=== PATIENT | female | born 1985 | race African-American/Black ===

== ENCOUNTER 2018-03-20 12:49 | Emergency (ER) | payer SELFPAY ==
[2018-03-20] MEDS ORDERED: Sodium Chloride 0.9% 1,000 ML IV ONE (13:18)
[2018-03-20] MEDS ORDERED: Sodium Chloride 0.9% 2.5 ML Syringe FLUSH PRN (13:18)
[2018-03-20] MEDS ORDERED: Ondansetron 4 MG/2 ML SDV IVPUSH ONE (13:18)
[2018-03-20] MEDS ORDERED: Sodium Chloride 0.9% 10 ML Syringe FLUSH PRN (13:18)
--- NOTE | 2018-03-20 13:20 | EDM.PDOC ---
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 She states that she recently took a home test which was positive. His been vomiting the past 2 days. She states this morning she has vomited 3 times and she cannot keep anything down. LMP was approximately February 05. She denies any abdominal pain, vaginal discharge or bleeding, pelvic pain. Review of systems: As per history of present illness and below otherwise all systems reviewed and negative. Past medical history: As per history of present illness and as reviewed below otherwise noncontributory. Surgical history: As per history of present illness and as reviewed below otherwise noncontributory. Social history: No reported history of drug or alcohol abuse. Family history: As per history of present illness and as reviewed below otherwise noncontributory. Physical exam: General: Patient sitting comfortably in no acute distress HEENT: Atraumatic, normocephalic, pupils reactive, negative for conjunctival pallor or scleral icterus, mucous membranes moist, throat clear, neck supple, nontender, trachea midline. Lungs: Clear to auscultation, breath sounds equal bilaterally, chest nontender. Heart: S1S2, regular, negative for clicks, rubs, or JVD. Abdomen: Soft, nondistended, nontender. Negative for masses or hepatosplenomegaly. Negative for costovertebral tenderness. Pelvis: Stable nontender. Genitourinary: Deferred. Rectal: Deferred. Extremities: Atraumatic, negative for cords or calf pain. Neurovascular unremarkable. Neuro: Awake, alert, oriented. Cranial nerves II through XII unremarkable. Cerebellum unremarkable. Motor and sensory unremarkable throughout. Exam nonfocal. Notes: Diagnostics: Urine hCG Therapeutics: 1 L normal saline IV 4 mg Zofran IV Impression: Nausea and vomiting in Plan: 1. May take Vitamin B6 10mg 3 times a day and eat crackers with plenty of small sips of fluids as needed. May take zofran as needed for severe nausea/vomiting. 2. Follow up with OB 3. Return to ED as needed as discussed. Definitive disposition and diagnosis as appropriate pending reevaluation and review of above. - Related Data Allergies Allergy/AdvReac Type Severity Reaction Status Date / Time No Known Allergies Allergy Verified 03/20/18 13:19 Home Meds: Home Meds Ondansetron [Zofran ODT] 4 mg PO Q6H PRN #10 tab.dis 03/20/18 [Rx] ED ROS GENERAL - Review of Systems Review Of Systems: ROS reveals no pertinent complaints other than HPI. ED EXAM, GI/ABD - Physical Exam Exam: See Below (see dictation) Course - Vital Signs Last Recorded V/S: Last Vital Signs Temp 36.6 C 03/20/18 13:14 Pulse 82 03/20/18 13:14 Resp 18 03/20/18 13:14 BP 114/75 03/20/18 13:14 Pulse Ox 99 03/20/18 13:14 - Orders/Labs/Meds Orders: Active Orders 24 hr Category Date Time Status HCG QUALITATIVE,URINE [URCHEM] Stat Lab 03/20/18 13:25 Ordered Sodium Chloride 0.9% [Saline Flush] Med 03/20/18 13:18 Active 10 ml FLUSH ASDIRECTED PRN Sodium Chloride 0.9% [Saline Flush] Med 03/20/18 13:18 Active 2.5 ml FLUSH ASDIRECTED PRN Saline Lock Insert [OM.PC] Stat Oth 03/20/18 13:18 Ordered Medication Orders Sodium Chloride (Saline Flush) 10 ml FLUSH ASDIRECTED PRN PRN Reason: Keep Vein Open Sodium Chloride (Saline Flush) 2.5 ml FLUSH ASDIRECTED PRN PRN Reason: Keep Vein Open Labs: Laboratory Tests 03/20/18 Range/Units 13:25 Urine HCG, Qual POSITIVE (NEGATIVE) Meds: Medications Generic Name Dose Route Start Last Admin Trade Name Freq PRN Reason Stop Dose Admin Sodium Chloride 10 ml 03/20/18 13:18 Saline Flush FLUSH ASDIRECTED PRN Keep Vein Open Sodium Chloride 2.5 ml 03/20/18 13:18 Saline Flush FLUSH ASDIRECTED PRN Keep Vein Open Discontinued Medications Generic Name Dose Route Start Last Admin Trade Name Freq PRN Reason Stop Dose Admin Sodium Chloride 1,000 mls @ 999 mls/hr 03/20/18 13:18 03/20/18 13:47 Normal Saline IV 03/20/18 14:18 999 mls/hr STAT ONE Administration Ondansetron HCl 4 mg 03/20/18 13:18 03/20/18 13:47 Zofran IVPUSH 03/20/18 13:19 4 mg ONETIME ONE Administration Departure - Departure Time of Disposition: 14:21 Disposition: Home, Self-Care 01 Condition: Good Clinical Impression: Nausea and vomiting during - Discharge Information Prescriptions: Ondansetron [Zofran ODT] 4 mg PO Q6H PRN #10 tab.dis PRN Reason: Nausea/Vomiting Referrals: PCP,None [Primary Care Provider] - Forms: ED Department Discharge Additional Instructions: 1. May take Vitamin B6 10mg 3 times a day and eat crackers with plenty of small sips of fluids as needed. May take zofran as needed for severe nausea/vomiting. 2. Follow up with OB 3. Return to ED as needed as discussed. - My Orders Last 24 Hours: My Active Orders 03/20/18 13:18 Sodium Chloride 0.9% [Saline Flush] 10 ml FLUSH ASDIRECTED PRN Sodium Chloride 0.9% [Saline Flush] 2.5 ml FLUSH ASDIRECTED PRN Saline Lock Insert [OM.PC] Stat 03/20/18 13:25 HCG QUALITATIVE,URINE [URCHEM] Stat - Assessment/Plan Last 24 Hours: My Active Orders 03/20/18 13:18 Sodium Chloride 0.9% [Saline Flush] 10 ml FLUSH ASDIRECTED PRN Sodium Chloride 0.9% [Saline Flush] 2.5 ml FLUSH ASDIRECTED PRN Saline Lock Insert [OM.PC] Stat 03/20/18 13:25 HCG QUALITATIVE,URINE [URCHEM] Stat
== END 2018-03-20 14:42 | disposition home or self-care (01) ==
LOC: MW.ED 12:49
DX: O21.9 Vomiting of pregnancy, unspecified (principal)
CPT/HCPCS: 81025; 96361; 96374; 99283; J2405; J7040; 99282

== ENCOUNTER 2018-11-20 23:50 | Inpatient (IN) | payer OTHER ==
[2018-11-21] MEDS ORDERED: Misoprostol 200 MCG Tab PO PRN (00:14)
[2018-11-21] MEDS ORDERED: Methylergonovine 0.2 MG/1 ML Amp IM PRN (00:14)
[2018-11-21] MEDS ORDERED: Nalbuphine 10 MG/1 ML Vial IVPUSH PRN ×2 (00:14→18:35)
[2018-11-21] MEDS ORDERED: Water For Irrigation,Sterile 1,000 ML Container IRR PRN (00:14)
[2018-11-21] MEDS ORDERED: Lidocaine 1% 50 ML MDV INJECT PRN (00:14)
[2018-11-21] MEDS ORDERED: Sodium Chloride 0.9% 10 ML SDV IV PRN (00:14)
[2018-11-21] MEDS ORDERED: Ondansetron 4 MG/2 ML SDV IV PRN (00:14)
[2018-11-21] MEDS ORDERED: Tranexamic Acid 1,000 MG in Sodium Chloride 0.9% 100 ML IV PRN (00:14)
[2018-11-21] MEDS ORDERED: Butorphanol 1 MG/ML SDV IVPUSH PRN (00:14)
[2018-11-21] MEDS ORDERED: Sodium Chloride 0.9% 2.5 ML Syringe FLUSH PRN (00:14)
[2018-11-21] MEDS ORDERED: Carboprost Tromethamine 250 MCG/1 ML Amp IM PRN (00:14)
[2018-11-21] MEDS ORDERED: Sodium Chloride 0.9% 10 ML Syringe FLUSH PRN (00:14)
[2018-11-21] MEDS ORDERED: Oxytocin/0.9 % Sodium Chloride 30 UNIT/500 ML BAG IV SCH ×2 (00:15→10:15)
--- NOTE | 2018-11-21 08:18 | PCM.LDHP ---
L&D History of Present Illness - General Date of Service: 11/21/18 Admit Problem/Dx: Patient Status Order with Admit Dx/Problem 11/21/18 00:14 Patient Status [ADT] Routine Admission Diagnosis/Problem Admission Diagnosis/Problem 11/21/18 08:13 33yo EDC 11/10/2018 41 4/7wks, Labor, O neg, RI, GBS neg, AROM light meconium fluid. 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: Reports: Social & Family History - Family History Family Medical History: Noncontributory - Tobacco Use Smoking Status *Q: Never Smoker - Caffeine Use Caffeine Use: Reports: Coffee, Tea - Recreational Drug Use Recreational Drug Use: No H&P Review of Systems - Review of Systems: Review Of Systems: See Below General: Reports: No Symptoms HEENT: Reports: No Symptoms Pulmonary: Reports: No Symptoms Cardiovascular: Reports: No Symptoms Gastrointestinal: Reports: No Symptoms Genitourinary: Reports: No Symptoms Musculoskeletal: Reports: No Symptoms Skin: Reports: No Symptoms Psychiatric: Reports: No Symptoms Neurological: Reports: No Symptoms Hematologic/Lymphatic: Reports: No Symptoms Immunologic: Reports: No Symptoms L&D Exam - Exam Exam: See Below - Vital Signs Weight: 71.214 kg - OB Specific Contraction Intensity: Moderate Movement: Active Heart Tones: Present Heart Tones per Min: 150 Heart Rate (FHR) Variability: Moderate (6-25 bmp) Presentation: Vertex - Rodríguez Score Rodríguez Score Cervix Position: Anterior Rodríguez Score Consistency: Soft Rodríguez Score Effacement: >80% Rodríguez Score Dilation: > 5 cm Rodríguez Score Infant's Station: -2 Rodríguez Score Total: 11 - Exam General: Alert, Oriented, Cooperative HEENT: Hearing Intact Lungs: Normal Respiratory Effort GI/Abdominal Exam: Soft, Non-Tender Rectal Exam: Deferred Genitourinary: Normal external exam, Normal bimanual exam, Cervical dilitation, Cervical fluid (mec stained fluid) Back Exam: Normal Inspection, Full Range of Motion Extremities: Normal Inspection, Normal Range of Motion, Non-Tender, No Pedal Edema Skin: Warm, Dry, Intact Neurological: Cranial Nerves Intact, Strength Equal Bilateral, Normal Speech, Normal Tone, Sensation Intact Psychiatric: Alert, Normal Affect, Normal Mood - Patient Data Lab Results Last 24 hrs: Laboratory Results - last 24 hr 11/21/18 11/21/18 Range/Units 00:35 00:35 WBC 9.19 (4.0-11.0) K/uL RBC 5.78 (4.30-5.90) M/uL Hgb 12.8 (12.0-16.0) g/dL Hct 40.4 (36.0-46.0) % MCV 69.9 L (80.0-98.0) fL MCH 22.1 L (27.0-32.0) pg MCHC 31.7 (31.0-37.0) g/dL RDW Std Deviation 53.2 (28.0-62.0) fl RDW Coeff of Amy 21 H (11.0-15.0) % Plt Count 150 (150-400) K/uL Nucleated RBC % 0.0 /100WBC Nucleated RBCs # 0 K/uL Blood Type O NEGATIVE Antibody Screen NEGATIVE Result Diagrams: 11/21/18 00:35 - Problem List (1) Supervision of normal IUP (intrauterine ) in primigravida SNOMED Code(s): 12673724, 474332896, 147984459, 811898446 ICD Code: Z34.00 - ENCNTR FOR SUPRVSN OF NORMAL FIRST , UNSP TRIMESTER Status: Acute Priority: High Current Visit: Yes Qualifiers: Trimester: third trimester Qualified Code(s): Z34.03 - Encounter for supervision of normal first , third trimester (2) Meconium in amniotic fluid SNOMED Code(s): 689481216, 015384305 ICD Code: P96.83 - MECONIUM STAINING Status: Acute Priority: High Current Visit: Yes Problem List Initiated/Reviewed/Updated: Yes Orders Last 24hrs: Active Orders 24 hr Category Date Time Status Patient Status [ADT] Routine ADT 11/21/18 00:14 Active May Shower [RC] ASDIRECTED Care 11/21/18 00:14 Active Notify Provider [RC] PRN Care 11/21/18 00:14 Active Up ad Malia [RC] ASDIRECTED Care 11/21/18 00:14 Active Vital Signs [RC] PER UNIT ROUTINE Care 11/21/18 00:14 Active Clear Liquid Diet [DIET] Diet 11/21/18 Breakfast Active Butorphanol [Stadol] Med 11/21/18 00:14 Active 1 mg IVPUSH Q1H PRN Carboprost Tromethamine [Hemabate DS] Med 11/21/18 00:14 Active 250 mcg IM ASDIRECTED PRN Lactated Ringers [Ringers, Lactated] 1,000 ml Med 11/21/18 00:15 Active IV ASDIRECTED Lidocaine 1% [Xylocaine 1%] Med 11/21/18 00:14 Active 50 ml INJECT ONETIME PRN Methylergonovine [Methergine] Med 11/21/18 00:14 Active 0.2 mg IM ASDIRECTED PRN Nalbuphine [Nubain] Med 11/21/18 00:14 Active 10 mg IVPUSH Q1H PRN Ondansetron [Zofran] Med 11/21/18 00:14 Active 4 mg IV Q6H PRN Oxytocin/0.9 % Sodium Chloride [Oxytocin 30 Unit/500 ML Med 11/21/18 00:15 Active -NS] 30 unit in 500 ml IV TITRATE Sodium Chloride 0.9% [Normal Saline] Med 11/21/18 00:14 Active 10 ml IV ASDIRECTED PRN Sodium Chloride 0.9% [Saline Flush] Med 11/21/18 00:14 Active 10 ml FLUSH ASDIRECTED PRN Sodium Chloride 0.9% [Saline Flush] Med 11/21/18 00:14 Active 2.5 ml FLUSH ASDIRECTED PRN Tranexamic Acid [Cyklokapron] 1,000 mg Med 11/21/18 00:14 Active Sodium Chloride 0.9% [Normal Saline] 100 ml IV ONETIME Water For Irrigation,Sterile [Sterile Water for Med 11/21/18 00:14 Active Irrigation] 1,000 ml IRR ASDIRECTED PRN miSOPROStol [Cytotec] Med 11/21/18 00:14 Active 200 mcg PO ONETIME PRN Scalp Electrode [WOMSER] Per Unit Routine Oth 11/21/18 00:14 Ordered Peripheral IV Insertion Adult [OM.PC] Routine Oth 11/21/18 00:14 Ordered Resuscitation Status Routine Resus Stat 11/21/18 00:14 Ordered Medication Orders Butorphanol Tartrate (Stadol) 1 mg IVPUSH Q1H PRN PRN Reason: Pain Carboprost Tromethamine (Hemabate Ds) 250 mcg IM ASDIRECTED PRN PRN Reason: Post Hemorrhage Lactated Ringer's (Ringers, Lactated) 1,000 mls @ 150 mls/hr IV ASDIRECTED CLYDE Oxytocin/Sodium Chloride (Oxytocin 30 Unit/500 Ml-Ns) 30 unit in 500 mls @ 999 mls/hr IV TITRATE CLYDE Tranexamic Acid 1,000 mg/ (Sodium Chloride) 110 mls @ 660 mls/hr IV ONETIME PRN PRN Reason: Bleeding Lidocaine HCl (Xylocaine 1%) 50 ml INJECT ONETIME PRN PRN Reason: Laceration repair Methylergonovine Maleate (Methergine) 0.2 mg IM ASDIRECTED PRN PRN Reason: Post Hemorrhage Misoprostol (Cytotec) 200 mcg PO ONETIME PRN PRN Reason: Post Hemorrhage Nalbuphine HCl (Nubain) 10 mg IVPUSH Q1H PRN PRN Reason: Pain (severe 7-10) Ondansetron HCl (Zofran) 4 mg IV Q6H PRN PRN Reason: Nausea/Vomiting Sodium Chloride (Saline Flush) 10 ml FLUSH ASDIRECTED PRN PRN Reason: Keep Vein Open Sodium Chloride (Saline Flush) 2.5 ml FLUSH ASDIRECTED PRN PRN Reason: Keep Vein Open Sodium Chloride (Normal Saline) 10 ml IV ASDIRECTED PRN PRN Reason: IV Use Sterile Water (Sterile Water For Irrigation) 1,000 ml IRR ASDIRECTED PRN PRN Reason: delivery Assessment/Plan Comment:: Labor A: 33yo EDC 11/10/2018 41 4/7wks, Labor, O neg, RI, GBS neg, AROM light meconium fluid. P: Admit, desires no epidural at this time, anticipate , Dr Escobedo updated
[2018-11-21] MEDS ORDERED: Terbutaline 1 MG/ML SDV SUBCUT PRN (10:05)
[2018-11-21] MEDS: Lactated Ringers 1,000 ML IV SCH ×2 (10:40→16:18)
[2018-11-21] MEDS ORDERED: ceFAZolin 2 GM in Premix Bag 1 BAG IV ONE (15:47)
[2018-11-21] MEDS ORDERED: Citric Acid/Sodium Citrate Solution 30 ML Cup PO ONE (15:47)
[2018-11-21] MEDS ORDERED: Morphine PF 10 MG/10 ML SDV ONE (16:21)
--- NOTE | 2018-11-21 16:23 | PCM.PREANE ---
Preanesthetic Assessment - Anesthesia/Transfusion/Family Hx Anesthesia History: No Prior Anesthesia Family History of Anesthesia Reaction: No Transfusion History: No Prior Transfusion(s) - Review of Systems General: No Symptoms Pulmonary: No Symptoms Cardiovascular: No Symptoms Gastrointestinal: No Symptoms Neurological: Paresthesia Other: Reports: None - Physical Assessment Temperature: 98 C Vital Signs: bp 114/75, p 85 fhr 135 Height: 1.55 m Weight: 71.214 kg ASA Class: 2E Mental Status: Alert & Oriented x3 Airway Class: Mallampati = 2 Dentition: Reports: Normal Dentition Thyro-Mental Finger Breadths: 3 Mouth Opening Finger Breadths: 3 ROM/Head Extension: Full Lungs: Clear to Auscultation, Normal Respiratory Effort Cardiovascular: Regular Rate, Regular Rhythm - Lab Values: Laboratory Last Values WBC 9.19 K/uL (4.0-11.0) 11/21/18 00:35 RBC 5.78 M/uL (4.30-5.90) 11/21/18 00:35 Hgb 12.8 g/dL (12.0-16.0) 11/21/18 00:35 Hct 40.4 % (36.0-46.0) 11/21/18 00:35 MCV 69.9 fL (80.0-98.0) L 11/21/18 00:35 MCH 22.1 pg (27.0-32.0) L 11/21/18 00:35 MCHC 31.7 g/dL (31.0-37.0) 11/21/18 00:35 RDW Std Deviation 53.2 fl (28.0-62.0) 11/21/18 00:35 RDW Coeff of Amy 21 % (11.0-15.0) H 11/21/18 00:35 Plt Count 150 K/uL (150-400) 11/21/18 00:35 Nucleated RBC % 0.0 /100WBC 11/21/18 00:35 Nucleated RBCs # 0 K/uL 11/21/18 00:35 Blood Type O NEGATIVE 11/21/18 00:35 Antibody Screen NEGATIVE 11/21/18 00:35 - Allergies Allergies/Adverse Reactions: Allergies Allergy/AdvReac Type Severity Reaction Status Date / Time No Known Allergies Allergy Verified 11/21/18 02:31 - Acknowledgements Anesthesia Type Planned: Spinal (discussed conversion to general anesthesia if spinal is inadequate or surgery is prolonged. 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 mathews. refer to his note for diagnosis) Musculoskeletal History: Reports: None Neurological History: Reports: None Psychiatric History: Reports: None Endocrine/Metabolic History: Reports: None - SUBSTANCE USE Smoking Status *Q: Never Smoker Days Per Week of Alcohol Use: 0 Recreational Drug Use History: No - HOME MEDS Home Medications: Home Meds Ondansetron [Zofran ODT] 4 mg PO Q6H PRN #10 tab.dis 03/20/18 [Rx] PNV95/Ferrous Fumarate/FA [ Tablet] 1 tab PO DAILY 11/21/18 [History] - CURRENT (IN HOUSE) MEDS Current Meds: Current Medications Butorphanol Tartrate (Stadol) 1 mg IVPUSH Q1H PRN PRN Reason: Pain Carboprost Tromethamine (Hemabate Ds) 250 mcg IM ASDIRECTED PRN PRN Reason: Post Hemorrhage Lactated Ringer's (Ringers, Lactated) 1,000 mls @ 150 mls/hr IV ASDIRECTED CLYDE Last Admin: 11/21/18 10:40 Dose: 150 mls/hr Oxytocin/Sodium Chloride (Oxytocin 30 Unit/500 Ml-Ns) 30 unit in 500 mls @ 999 mls/hr IV TITRATE CLYDE Tranexamic Acid 1,000 mg/ (Sodium Chloride) 110 mls @ 660 mls/hr IV ONETIME PRN PRN Reason: Bleeding Oxytocin/Sodium Chloride (Oxytocin 30 Unit/500 Ml-Ns) 30 unit in 500 mls @ 2 mls/hr IV TITRATE CLYDE; Protocol Last Titration: 11/21/18 13:35 Dose: 10 munits/min, 10 mls/hr Lidocaine HCl (Xylocaine 1%) 50 ml INJECT ONETIME PRN PRN Reason: Laceration repair Methylergonovine Maleate (Methergine) 0.2 mg IM ASDIRECTED PRN PRN Reason: Post Hemorrhage Misoprostol (Cytotec) 200 mcg PO ONETIME PRN PRN Reason: Post Hemorrhage Nalbuphine HCl (Nubain) 10 mg IVPUSH Q1H PRN PRN Reason: Pain (severe 7-10) Ondansetron HCl (Zofran) 4 mg IV Q6H PRN PRN Reason: Nausea/Vomiting Sodium Chloride (Saline Flush) 10 ml FLUSH ASDIRECTED PRN PRN Reason: Keep Vein Open Sodium Chloride (Saline Flush) 2.5 ml FLUSH ASDIRECTED PRN PRN Reason: Keep Vein Open Sodium Chloride (Normal Saline) 10 ml IV ASDIRECTED PRN PRN Reason: IV Use Sterile Water (Sterile Water For Irrigation) 1,000 ml IRR ASDIRECTED PRN PRN Reason: delivery Terbutaline Sulfate (Brethine) 0.25 mg SUBCUT ASDIRECTED PRN PRN Reason: Tacysystole Discontinued Medications Citric Acid/Sodium Citrate (Bicitra Solution) 30 ml PO ONETIME ONE Stop: 11/21/18 15:48 Cefazolin Sodium/Dextrose 2 gm (/ Premix) 50 mls @ 100 mls/hr IV ONETIME ONE Stop: 11/21/18 16:16
[2018-11-21] MEDS ORDERED: Bisacodyl 10 MG Supp RECTAL PRN (17:42)
[2018-11-21] MEDS ORDERED: Ibuprofen 800 MG Tab PO PRN (17:42)
[2018-11-21] MEDS ORDERED: Ondansetron 4 MG/2 ML SDV IVPUSH PRN (17:42)
[2018-11-21] MEDS ORDERED: Lanolin 100% Cream 7 GM Tube TOP PRN (17:42)
[2018-11-21] MEDS ORDERED: diphenhydrAMINE 50 MG/ML SDV IVPUSH PRN (17:42)
[2018-11-21] MEDS ORDERED: Acetaminophen/oxyCODONE 325-5 MG Tab PO PRN ×3 (17:42→18:35)
[2018-11-21] MEDS ORDERED: Lactated Ringers 1,000 ML IV SCH (17:45)
--- NOTE | 2018-11-21 17:46 | PCM.OPNOTE ---
- General Post-Op/Procedure Note Date of Surgery/Procedure: 11/21/18 Operative Procedure(s): Primary C/section. Pre Op Diagnosis: [id number] faliear to progress Post-Op Diagnosis: Same Anesthesia Technique: Spinal Primary Surgeon: Jaylan Escobedo Ham Pumper: Nila Millard EBL in mLs: 650 Complications: None Condition: Good
[2018-11-21] MEDS ORDERED: Octyl 2-Cyanoacrylate 1 Tube ONE (17:47)
[2018-11-21] MEDS: Ketorolac 30 MG/ML SDV IVPUSH SCH (18:28)
[2018-11-21] MEDS ORDERED: Naloxone 0.4 MG/ML Syringe IVPUSH PRN (18:35)
--- NOTE | 2018-11-21 18:44 | PCM.POSTAN ---
POST ANESTHESIA ASSESSMENT - MENTAL STATUS Mental Status: Alert, Oriented - VITAL SIGNS Blood Pressure: 107/41 - RESPIRATORY Respiratory Status: Respiratory Rate WNL, Airway Patent, O2 Saturation Stable - CARDIOVASCULAR CV Status: Pulse Rate WNL, Blood Pressure Stable - GASTROINTESTINAL GI Status: No Symptoms - PAIN Pain Score: 0 (spinal still intact) - POST OP HYDRATION Hydration Status: Adequate & Stable
--- NOTE | 2018-11-21 19:18 | OR ---
SURGEON: Jaylan Escobedo MD DATE OF PROCEDURE: 11/21/2018 PREOPERATIVE DIAGNOSIS: Intrauterine , 41 weeks plus, failure to progress. POSTOPERATIVE DIAGNOSIS: Intrauterine , 41 weeks plus, failure to progress. OPERATION PERFORMED: Primary low-transverse section. FUR STYLIST: Nila Millard. ANESTHESIA: Spinal. ANESTHESIOLOGIST: Ms. Mai Blanco and Dr. Bai. ESTIMATED BLOOD LOSS: 650 mL. COMPLICATIONS: None. FINDING: Male fetus, cried immediately. score reported to be 8 and 9. Normal uterus, tubes and ovary. Senior Analyst Programmer has attended the to the delivery and thick meconium was noted upon entering the amniotic sac. INDICATION: This patient is admitted in active labor. She is 41 weeks plus. She is followed in our clinic primarily by our nurse boom conveyor operator. The patient at the time of admission, she was 5 cm with bulging bag of water. She have an artificial rupture of the membrane and it was noted that the patient had thick meconium. The patient is rather progress slowly and she is 1-6 cm without any further progress. She started on Pitocin augmentation. She had adequate contractions every 2 to 3 minutes. She did not have spinal or epidural during the labor and the patient in spite of adequate contraction did not progress beyond 7 cm complete vertex and -3. A possibility of failure to progress is entertained and decision was made to do a primary low-transverse section that was presented and explained to the patient and her and they both consented for that procedure. PROCEDURE IN DETAIL: The patient was brought to the OR, properly identified and after adequate level of spinal anesthesia with a Desai catheter in the bladder, the patient was prepped and draped in sterile fashion as usual. Time-out was taken and then after reaffirming and identifying the patient, low-transverse skin incision was done using the and the electrocautery. The Claudia's fascia and rectus fascia were opened in direction of the incision. The 2 recti muscles were and peritoneal cavity was entered. Bladder flap was raised in the usual manner pushing the bladder away from the lower uterine segment. Low transverse uterine incision was done and extended manually with the hand. Fetus was in a vertex position. It is noticed that the fetus was above the pelvis and it was delivered without any problem, cried immediately, handed to the sr. vendor management associate who was present at the time of the delivery. score and weight are not available at this time. The placenta delivered spontaneous, complete, and intact and then repair of the lower uterine segment done with 2-0 Vicryl continuous interlocking in 2 layers. Reperitonealization done with 3-0 Vicryl continuous and then the peritoneal cavity evacuated completely from all blood and blood clot and closed with 3-0 Vicryl continuous and the rectus fascia was closed with #1 PDS double strand continuous, the Claudia's fascia with 3-0 Vicryl continuous and the skin closed with skin clips, 3-0 Vicryl in a subcuticular fashion with Dermabond. Instrument and sponge count was correct. The patient tolerated the procedure well, went to recovery in stable general condition. MARISOL CASTANON /[id number]
[2018-11-22] MEDS: Ketorolac 30 MG/ML SDV IVPUSH SCH ×4 (00:40→18:51)
--- NOTE | 2018-11-22 05:38 | PCM48HPAN ---
Post Anesthesia Note - EVALUATION WITHIN 48HRS OF ANESTHETIC Vital Signs in Normal Range: Yes Patient Participated in Evaluation: Yes Respiratory Function Stable: Yes Airway Patent: Yes Cardiovascular Function Stable: Yes Hydration Status Stable: Yes Pain Control Satisfactory: Yes Nausea and Vomiting Control Satisfactory: Yes Mental Status Recovered: Yes Resp Rate: 17 Blood Pressure: 107/41
[2018-11-22] MEDS: Docusate Sodium 100 MG Cap PO SCH ×3 (07:38→20:55)
--- NOTE | 2018-11-22 09:55 | PCM.PNPP ---
- General Info Date of Service: 11/22/18 Functional Status: Reports: Pain Controlled - Review of Systems General: Reports: No Symptoms HEENT: Reports: No Symptoms Pulmonary: Reports: No Symptoms Cardiovascular: Reports: No Symptoms Gastrointestinal: Reports: No Symptoms Genitourinary: Reports: No Symptoms Musculoskeletal: Reports: No Symptoms Skin: Reports: No Symptoms Neurological: Reports: No Symptoms Psychiatric: Reports: No Symptoms - General Info Date of Service: 11/22/18 - Patient Data Vital Signs - Most Recent: Last Vital Signs Temp 36.6 C 11/22/18 07:10 Pulse 91 11/22/18 09:00 Resp 18 11/22/18 09:00 BP 106/72 11/22/18 07:10 Pulse Ox 97 11/22/18 09:00 Weight - Most Recent: 71.214 kg I&O - Last 24 Hours: Intake & Output 11/21/18 11/22/18 11/22/18 22:59 06:59 14:59 Intake Total 1500 700 Output Total 500 1300 Balance 1000 -600 Lab Results - Last 24 Hours: Laboratory Results - last 24 hr 11/21/18 11/21/18 11/21/18 Range/Units 00:35 20:45 20:45 Hgb (12.0-16.0) g/dL Hct (36.0-46.0) % Blood Type O NEGATIVE Antibody Screen NEGATIVE Screen Cancelled RhIG Candidate? Cancelled Rhogam Indicated YES, BABY RH POS H KB Screen Cancelled SEE NOTE KB Cells Counted Cancelled 2 KB Red Cells Counted Cancelled 2026 KB % Cells Cancelled 0.10 Doses of RhIg Required Cancelled 1 11/22/18 Range/Units 05:25 Hgb 10.1 L (12.0-16.0) g/dL Hct 32.6 L (36.0-46.0) % Blood Type Antibody Screen Screen RhIG Candidate? Rhogam Indicated KB Screen KB Cells Counted KB Red Cells Counted KB % Cells Doses of RhIg Required Med Orders - Current: Current Medications Bisacodyl (Dulcolax) 10 mg RECTAL ONETIME PRN PRN Reason: Constipation Butorphanol Tartrate (Stadol) 1 mg IVPUSH Q1H PRN PRN Reason: Pain Carboprost Tromethamine (Hemabate Ds) 250 mcg IM ASDIRECTED PRN PRN Reason: Post Hemorrhage Diphenhydramine HCl (Benadryl) 25 mg IVPUSH Q6H PRN PRN Reason: Itching or Nausea Docusate Sodium (Colace) 100 mg PO BID [facility] Last Admin: 11/22/18 09:13 Dose: 100 mg Emollient Ointment (Lansinoh Hpa) 0 gm TOP ASDIRECTED PRN PRN Reason: Sore Nipples Lactated Ringer's (Ringers, Lactated) 1,000 mls @ 150 mls/hr IV ASDIRECTED [facility] Last Admin: 11/21/18 16:18 Dose: 150 mls/hr Oxytocin/Sodium Chloride (Oxytocin 30 Unit/500 Ml-Ns) 30 unit in 500 mls @ 999 mls/hr IV TITRATE [facility] Tranexamic Acid 1,000 mg/ (Sodium Chloride) 110 mls @ 660 mls/hr IV ONETIME PRN PRN Reason: Bleeding Oxytocin/Sodium Chloride (Oxytocin 30 Unit/500 Ml-Ns) 30 unit in 500 mls @ 2 mls/hr IV TITRATE [facility]; Protocol Last Titration: 11/21/18 13:35 Dose: 10 munits/min, 10 mls/hr Lactated Ringer's (Ringers, Lactated) 1,000 mls @ 125 mls/hr IV ASDIRECTED [facility] Last Admin: 11/21/18 22:18 Dose: 125 mls/hr Ibuprofen (Motrin) 800 mg PO Q8H PRN PRN Reason: mild pain or fever Ketorolac Tromethamine (Toradol) 30 mg IVPUSH Q6H [facility] Stop: 11/22/18 17:46 Last Admin: 11/22/18 06:35 Dose: 30 mg Lidocaine HCl (Xylocaine 1%) 50 ml INJECT ONETIME PRN PRN Reason: Laceration repair Methylergonovine Maleate (Methergine) 0.2 mg IM ASDIRECTED PRN PRN Reason: Post Hemorrhage Misoprostol (Cytotec) 200 mcg PO ONETIME PRN PRN Reason: Post Hemorrhage Nalbuphine HCl (Nubain) 10 mg IVPUSH Q1H PRN PRN Reason: Pain (severe 7-10) Nalbuphine HCl (Nubain) 5 mg IVPUSH Q3H PRN PRN Reason: Pruritis Stop: 11/22/18 18:36 Last Admin: 11/22/18 00:25 Dose: 5 mg Naloxone HCl (Narcan) 0.1 mg IVPUSH ONETIME PRN PRN Reason: RR<6 WITH STIMULATION Stop: 11/22/18 18:36 Ondansetron HCl (Zofran) 4 mg IV Q6H PRN PRN Reason: Nausea/Vomiting Ondansetron HCl (Zofran) 4 mg IVPUSH Q4H PRN PRN Reason: Nausea/Vomiting Oxycodone/Acetaminophen (Percocet 325-5 Mg) 1 tab PO Q4H PRN PRN Reason: Pain (moderate 4-6) Oxycodone/Acetaminophen (Percocet 325-5 Mg) 2 tab PO Q4H PRN PRN Reason: Pain (moderate 4-6) Oxycodone/Acetaminophen (Percocet 325-5 Mg) 1 tab PO ONETIME PRN PRN Reason: Breakthrough Pain Stop: 11/22/18 17:00 Sodium Chloride (Saline Flush) 10 ml FLUSH ASDIRECTED PRN PRN Reason: Keep Vein Open Sodium Chloride (Saline Flush) 2.5 ml FLUSH ASDIRECTED PRN PRN Reason: Keep Vein Open Sodium Chloride (Normal Saline) 10 ml IV ASDIRECTED PRN PRN Reason: IV Use Sterile Water (Sterile Water For Irrigation) 1,000 ml IRR ASDIRECTED PRN PRN Reason: delivery Terbutaline Sulfate (Brethine) 0.25 mg SUBCUT ASDIRECTED PRN PRN Reason: Tacysystole Discontinued Medications Citric Acid/Sodium Citrate (Bicitra Solution) 30 ml PO ONETIME ONE Stop: 11/21/18 15:48 Last Admin: 11/21/18 16:30 Dose: 30 ml Cefazolin Sodium/Dextrose 2 gm (/ Premix) 50 mls @ 100 mls/hr IV ONETIME ONE Stop: 11/21/18 16:16 Last Admin: 11/21/18 16:15 Dose: 100 mls/hr Morphine Sulfate (Duramorph Pf) Confirm Administered Dose 10 mg .ROUTE .STK-MED ONE Stop: 11/21/18 16:22 Octyl Cyanoacrylate (Dermabond Advance) Confirm Administered Dose 1 applic .ROUTE .STK-MED ONE Stop: 11/21/18 17:48 Last Admin: 11/22/18 07:38 Dose: Not Given - Infant Interaction Infant Disposition, : [place] in Room with Family Infant Interaction: Not Interacting Infant Feeding: Attempted ; Nursed Fair/Poor Support Person: - Recovery Exam Fundal Tone: Firm Fundal Level: At Umbilicus Fundal Placement: Right Lochia Amount: Scant Lochia Color: Rubra/Red Perineum Description: Intact, Minimal Bruising/Swelling Episiotomy/Laceration: None Bladder Status: Indwelling Catheter in Place Urinary Elimination: Indwelling Catheter - Exam General: Alert, Oriented HEENT: Pupils Equal Neck: Supple Lungs: Clear to Auscultation, Normal Respiratory Effort Cardiovascular: Regular Rate, Regular Rhythm GI/Abdominal Exam: Normal Bowel Sounds, Soft, Non-Tender, No Organomegaly, No Distention, No Abnormal Bruit, No Mass, Pelvis Stable Extremities: Normal Inspection, Normal Range of Motion, Non-Tender, No Pedal Edema, Normal Capillary Refill Skin: Warm, Dry, Intact Wound/Incisions: Healing Well Neurological: No New Focal Deficit Psy/Mental Status: Alert, Normal Affect, Normal Mood - Problem List Review Problem List Initiated/Reviewed/Updated: Yes - My Orders Last 24 Hours: My Active Orders 11/21/18 15:47 Schedule Procedure [COMM] Per Unit Routine 11/21/18 16:30 Notify Provider Vital Signs [RC] PRN 11/21/18 17:42 Acetaminophen/oxyCODONE [Percocet 325-5 MG] 1 tab PO Q4H PRN Acetaminophen/oxyCODONE [Percocet 325-5 MG] 2 tab PO Q4H PRN Bisacodyl [Dulcolax] 10 mg RECTAL ONETIME PRN Ibuprofen [Motrin] 800 mg PO Q8H PRN Lanolin [Lansinoh HPA] See Dose Instructions TOP ASDIRECTED PRN Ondansetron [Zofran] 4 mg IVPUSH Q4H PRN diphenhydrAMINE [Benadryl] 25 mg IVPUSH Q6H PRN 11/21/18 17:43 Patient Status [ADT] Routine Ambulate [RC] PER UNIT ROUTINE Antiembolic Devices [RC] PER UNIT ROUTINE Communication Order [RC] PER UNIT ROUTINE Communication Order [RC] PER UNIT ROUTINE Communication Order [RC] Per Unit Routine May Shower [RC] ASDIRECTED RT Incentive Spirometry [RC] Q2HWA Vital Signs [RC] PER UNIT ROUTINE Assess Lochia [WOMSER] Per Unit Routine Assess Uterine Involution [WOMSER] Per Unit Routine Breast Pump [WOMSER] Per Unit Routine Peripheral IV Discontinue [OM.PC] Routine Sequential Compression Device [OM.PC] Per Unit Routine 11/21/18 17:45 Ketorolac [Toradol] 30 mg IVPUSH Q6H Lactated Ringers [Ringers, Lactated] 1,000 ml IV ASDIRECTED 11/21/18 20:45 RH IMMUNE GLOBULIN [BBK] Routine RHOGAM, [RHIG WORKUP, ] [BBK] Routine 11/21/18 21:00 Docusate Sodium [Colace] 100 mg PO BID 11/22/18 Breakfast Regular Diet [DIET] - Assessment Assessment:: Status post section postoperative day #1 the incision is clean and dry the patient is ambulatory minimum vaginal bleeding she is on regular diet to have pain is under control voiding without any problem. Planning discharge in a.m. - Plan Plan:: Labor A: 33yo EDC 11/10/2018 41 4/7wks, Labor, O neg, RI, GBS neg, AROM light meconium fluid. P: Admit, desires no epidural at this time, anticipate , Dr Escobedo updated
--- NOTE | 2018-11-23 08:42 | PCM.SURGPN ---
- General Info Date of Service: 11/23/18 POD#: 2 Functional Status: Reports: Pain Controlled - Review of Systems General: Reports: No Symptoms HEENT: Reports: No Symptoms Pulmonary: Reports: No Symptoms Cardiovascular: Reports: No Symptoms Gastrointestinal: Reports: No Symptoms Genitourinary: Reports: No Symptoms Musculoskeletal: Reports: No Symptoms Skin: Reports: No Symptoms Neurological: Reports: No Symptoms Psychiatric: Reports: No Symptoms - Patient Data Vitals - Most Recent: Last Vital Signs Temp 37.2 C 11/23/18 07:35 Pulse 74 11/23/18 07:35 Resp 16 11/23/18 07:35 BP 110/70 11/23/18 07:35 Pulse Ox 98 11/23/18 07:35 Weight - Most Recent: 71.214 kg I&O - Last 24 Hours: Intake & Output 11/22/18 11/23/18 11/23/18 22:59 06:59 14:59 Intake Total 2 Output Total 550 Balance -548 Lab Results Last 24 Hrs: Laboratory Results - last 24 hr 11/21/18 Range/Units 20:45 Screen Cancelled RhIG Candidate? Cancelled Rhogam Indicated YES, BABY RH POS H Med Orders - Current: Current Medications Bisacodyl (Dulcolax) 10 mg RECTAL ONETIME PRN PRN Reason: Constipation Butorphanol Tartrate (Stadol) 1 mg IVPUSH Q1H PRN PRN Reason: Pain Carboprost Tromethamine (Hemabate Ds) 250 mcg IM ASDIRECTED PRN PRN Reason: Post Hemorrhage Diphenhydramine HCl (Benadryl) 25 mg IVPUSH Q6H PRN PRN Reason: Itching or Nausea Docusate Sodium (Colace) 100 mg PO BID [facility] Last Admin: 11/22/18 20:55 Dose: 100 mg Emollient Ointment (Lansinoh Hpa) 0 gm TOP ASDIRECTED PRN PRN Reason: Sore Nipples Lactated Ringer's (Ringers, Lactated) 1,000 mls @ 150 mls/hr IV ASDIRECTED [facility] Last Admin: 11/21/18 16:18 Dose: 150 mls/hr Oxytocin/Sodium Chloride (Oxytocin 30 Unit/500 Ml-Ns) 30 unit in 500 mls @ 999 mls/hr IV TITRATE [facility] Tranexamic Acid 1,000 mg/ (Sodium Chloride) 110 mls @ 660 mls/hr IV ONETIME PRN PRN Reason: Bleeding Oxytocin/Sodium Chloride (Oxytocin 30 Unit/500 Ml-Ns) 30 unit in 500 mls @ 2 mls/hr IV TITRATE [facility]; Protocol Last Titration: 11/21/18 13:35 Dose: 10 munits/min, 10 mls/hr Lactated Ringer's (Ringers, Lactated) 1,000 mls @ 125 mls/hr IV ASDIRECTED [facility] Last Admin: 11/21/18 22:18 Dose: 125 mls/hr Ibuprofen (Motrin) 800 mg PO Q8H PRN PRN Reason: mild pain or fever Lidocaine HCl (Xylocaine 1%) 50 ml INJECT ONETIME PRN PRN Reason: Laceration repair Methylergonovine Maleate (Methergine) 0.2 mg IM ASDIRECTED PRN PRN Reason: Post Hemorrhage Misoprostol (Cytotec) 200 mcg PO ONETIME PRN PRN Reason: Post Hemorrhage Nalbuphine HCl (Nubain) 10 mg IVPUSH Q1H PRN PRN Reason: Pain (severe 7-10) Ondansetron HCl (Zofran) 4 mg IV Q6H PRN PRN Reason: Nausea/Vomiting Ondansetron HCl (Zofran) 4 mg IVPUSH Q4H PRN PRN Reason: Nausea/Vomiting Oxycodone/Acetaminophen (Percocet 325-5 Mg) 1 tab PO Q4H PRN PRN Reason: Pain (moderate 4-6) Oxycodone/Acetaminophen (Percocet 325-5 Mg) 2 tab PO Q4H PRN PRN Reason: Pain (moderate 4-6) Last Admin: 11/22/18 20:55 Dose: 2 tab Sodium Chloride (Saline Flush) 10 ml FLUSH ASDIRECTED PRN PRN Reason: Keep Vein Open Sodium Chloride (Saline Flush) 2.5 ml FLUSH ASDIRECTED PRN PRN Reason: Keep Vein Open Sodium Chloride (Normal Saline) 10 ml IV ASDIRECTED PRN PRN Reason: IV Use Sterile Water (Sterile Water For Irrigation) 1,000 ml IRR ASDIRECTED PRN PRN Reason: delivery Terbutaline Sulfate (Brethine) 0.25 mg SUBCUT ASDIRECTED PRN PRN Reason: Tacysystole Discontinued Medications Citric Acid/Sodium Citrate (Bicitra Solution) 30 ml PO ONETIME ONE Stop: 11/21/18 15:48 Last Admin: 11/21/18 16:30 Dose: 30 ml Cefazolin Sodium/Dextrose 2 gm (/ Premix) 50 mls @ 100 mls/hr IV ONETIME ONE Stop: 11/21/18 16:16 Last Admin: 11/21/18 16:15 Dose: 100 mls/hr Ketorolac Tromethamine (Toradol) 30 mg IVPUSH Q6H [facility] Stop: 11/22/18 17:46 Last Admin: 11/22/18 18:51 Dose: 30 mg Morphine Sulfate (Duramorph Pf) Confirm Administered Dose 10 mg .ROUTE .STK-MED ONE Stop: 11/21/18 16:22 Nalbuphine HCl (Nubain) 5 mg IVPUSH Q3H PRN PRN Reason: Pruritis Stop: 11/22/18 18:36 Last Admin: 11/22/18 00:25 Dose: 5 mg Naloxone HCl (Narcan) 0.1 mg IVPUSH ONETIME PRN PRN Reason: RR<6 WITH STIMULATION Stop: 11/22/18 18:36 Octyl Cyanoacrylate (Dermabond Advance) Confirm Administered Dose 1 applic .ROUTE .STK-MED ONE Stop: 11/21/18 17:48 Last Admin: 11/22/18 07:38 Dose: Not Given Oxycodone/Acetaminophen (Percocet 325-5 Mg) 1 tab PO ONETIME PRN PRN Reason: Breakthrough Pain Stop: 11/22/18 17:00 - Exam Wound/Incisions: Healing Well General: Alert, Oriented HEENT: Pupils Equal Neck: Supple Lungs: Clear to Auscultation, Normal Respiratory Effort Cardiovascular: Regular Rate, Regular Rhythm GI/Abdominal Exam: Normal Bowel Sounds, Soft, Non-Tender, No Organomegaly, No Distention, No Abnormal Bruit, No Mass, Pelvis Stable Extremities: Normal Inspection, Normal Range of Motion, Non-Tender, No Pedal Edema, Normal Capillary Refill Skin: Warm, Dry, Intact Neurological: No New Focal Deficit Psy/Mental Status: Alert, Normal Affect, Normal Mood - Problem List Review Problem List Initiated/Reviewed/Updated: Yes - My Orders Last 24 Hours: Active Orders 24 hr Category Date Time Status AN Neuroaxis Duramorph Precaution Reflex [OM.PC] PER Oth 11/22/18 18:45 Ordered UNIT ROUTINE Medication Orders Bisacodyl (Dulcolax) 10 mg RECTAL ONETIME PRN PRN Reason: Constipation Butorphanol Tartrate (Stadol) 1 mg IVPUSH Q1H PRN PRN Reason: Pain Carboprost Tromethamine (Hemabate Ds) 250 mcg IM ASDIRECTED PRN PRN Reason: Post Hemorrhage Diphenhydramine HCl (Benadryl) 25 mg IVPUSH Q6H PRN PRN Reason: Itching or Nausea Docusate Sodium (Colace) 100 mg PO BID [facility] Last Admin: 11/22/18 20:55 Dose: 100 mg Admin: 11/22/18 09:13 Dose: 100 mg Admin: 11/22/18 07:38 Dose: Emollient Ointment (Lansinoh Hpa) 0 gm TOP ASDIRECTED PRN PRN Reason: Sore Nipples Lactated Ringer's (Ringers, Lactated) 1,000 mls @ 150 mls/hr IV ASDIRECTED [facility] Last Admin: 11/21/18 16:18 Dose: 150 mls/hr Infusion: 11/21/18 16:18 Dose: 150 mls/hr Admin: 11/21/18 10:40 Dose: 150 mls/hr Oxytocin/Sodium Chloride (Oxytocin 30 Unit/500 Ml-Ns) 30 unit in 500 mls @ 999 mls/hr IV TITRATE [facility] Tranexamic Acid 1,000 mg/ (Sodium Chloride) 110 mls @ 660 mls/hr IV ONETIME PRN PRN Reason: Bleeding Oxytocin/Sodium Chloride (Oxytocin 30 Unit/500 Ml-Ns) 30 unit in 500 mls @ 2 mls/hr IV TITRATE [facility]; Protocol Last Titration: 11/21/18 13:35 Dose: 10 munits/min, 10 mls/hr Titration: 11/21/18 13:10 Dose: 9 munits/min, 9 mls/hr Titration: 11/21/18 12:45 Dose: 7 munits/min, 7 mls/hr Titration: 11/21/18 12:02 Dose: 5 munits/min, 5 mls/hr Titration: 11/21/18 11:05 Dose: 4 munits/min, 4 mls/hr Admin: 11/21/18 10:42 Dose: 2 munits/min, 2 mls/hr Lactated Ringer's (Ringers, Lactated) 1,000 mls @ 125 mls/hr IV ASDIRECTED [facility] Last Admin: 11/21/18 22:18 Dose: 125 mls/hr Ibuprofen (Motrin) 800 mg PO Q8H PRN PRN Reason: mild pain or fever Lidocaine HCl (Xylocaine 1%) 50 ml INJECT ONETIME PRN PRN Reason: Laceration repair Methylergonovine Maleate (Methergine) 0.2 mg IM ASDIRECTED PRN PRN Reason: Post Hemorrhage Misoprostol (Cytotec) 200 mcg PO ONETIME PRN PRN Reason: Post Hemorrhage Nalbuphine HCl (Nubain) 10 mg IVPUSH Q1H PRN PRN Reason: Pain (severe 7-10) Ondansetron HCl (Zofran) 4 mg IV Q6H PRN PRN Reason: Nausea/Vomiting Ondansetron HCl (Zofran) 4 mg IVPUSH Q4H PRN PRN Reason: Nausea/Vomiting Oxycodone/Acetaminophen (Percocet 325-5 Mg) 1 tab PO Q4H PRN PRN Reason: Pain (moderate 4-6) Oxycodone/Acetaminophen (Percocet 325-5 Mg) 2 tab PO Q4H PRN PRN Reason: Pain (moderate 4-6) Last Admin: 11/22/18 20:55 Dose: 2 tab Sodium Chloride (Saline Flush) 10 ml FLUSH ASDIRECTED PRN PRN Reason: Keep Vein Open Sodium Chloride (Saline Flush) 2.5 ml FLUSH ASDIRECTED PRN PRN Reason: Keep Vein Open Sodium Chloride (Normal Saline) 10 ml IV ASDIRECTED PRN PRN Reason: IV Use Sterile Water (Sterile Water For Irrigation) 1,000 ml IRR ASDIRECTED PRN PRN Reason: delivery Terbutaline Sulfate (Brethine) 0.25 mg SUBCUT ASDIRECTED PRN PRN Reason: Tacysystole - Assessment Assessment (Free Text/Narrative):: Status post section postoperative day #2 the incision is clean and dry the patient is ambulatory on regular diet and voiding without any problem she had a bowel movement. - Plan Plan (Free Text/Narrative):: Sending the patient home with the poor section instructions she is to follow Office in one week
[2018-11-23] MEDS: Docusate Sodium 100 MG Cap PO SCH (08:54)
--- NOTE | 2018-11-23 13:31 | PCM48HPAN ---
Post Anesthesia Note - EVALUATION WITHIN 48HRS OF ANESTHETIC Vital Signs in Normal Range: Yes Patient Participated in Evaluation: Yes Respiratory Function Stable: Yes Airway Patent: Yes Cardiovascular Function Stable: Yes Hydration Status Stable: Yes Pain Control Satisfactory: Yes Nausea and Vomiting Control Satisfactory: Yes Mental Status Recovered: Yes Resp Rate: 16 Temperature: 98 C Blood Pressure: 107/41
== END 2018-11-23 19:30 | disposition home or self-care (01) | DRG 788 ==
LOC: MW.OBCHECK 23:50 → MW.OB 11-21 00:06 → MW.OBCHECK 11-21 00:14 → MW.OB 11-21 00:14 → OBSVTOIN 11-21 17:24 → MW.OB 11-21 22:55
PROVIDERS: ADMIT Obstetrics & Gynecology; ATTEND Obstetrics & Gynecology
PROC: 10D00Z1 Extraction of Products of Conception, Low, Open Approach (ICD-10-PCS; principal; 2018-11-21)
PROC: 10907ZC Drainage of Amniotic Fluid, Therapeutic from Products of Conception, Via Natural or Artificial Opening (ICD-10-PCS; 2018-11-21)
DX: O62.0 Primary inadequate contractions (principal); O77.0 Labor and delivery complicated by meconium in amniotic fluid; Z3A.41 41 weeks gestation of pregnancy; Z37.0 Single live birth
CPT/HCPCS: 36415; 59025; 85014; 85018; 85027; 86850; 86900; 86901; A9270-GY; J0690; J1885; J2270; J2300; J2590; J2792; J7120

== ENCOUNTER 2020-02-11 06:12 | Emergency (ER) | payer OTHER, SELFPAY ==
--- NOTE | 2020-02-11 07:21 | CR ---
HISTORY: Syncope. TECHNIQUE: One view of the chest. COMPARISON: No prior. FINDINGS: Cardiac size and pulmonary vasculature are within normal limits. There is no acute lung infiltrate or pulmonary edema. No pneumothorax or pleural effusion. No acute bony abnormality. IMPRESSION: No acute disease. Dictated by Lamont Miguel MD @ 02/11/2020 7:19:59 AM Dictated by: Lamont Miguel MD @ 02/11/2020 07:20:02 (Electronically Signed)
[2020-02-11 07:25] LABS: BLOOD UREA NITROGEN,BUN 16 mg/dL (7.0-18.0); CARBON DIOXIDE,CO2 22.3 mmol/L (21.0-32.0); CHLORIDE,CL 103 mmol/L (98-107); GLUCOSE RANDOM 86 mg/dL (74-106); POTASSIUM,K 3.7 mmol/L (3.5-5.1); SODIUM,NA 137 mmol/L (136-145)
--- NOTE | 2020-02-11 07:36 | EDM.PDOC ---
ED HPI GENERAL MEDICAL PROBLEM - General Chief Complaint: Syncope Stated Complaint: FAINTED Time Seen by Provider: 02/11/20 06:19 - History of Present Illness INITIAL COMMENTS - FREE TEXT/NARRATIVE: History of present illness: [] Patient presents to the ED via EMS after having a syncopal episode this morning she had gotten up to use the restroom and had been having some heartburn and she wanted to take some Tums when she had a syncopal episode and apparently was passed out for approximately 1 minute. No injuries her was at her side when it happened and helped her she denies any pain at this time she has had a recent positive test at home she states that she had a previous syncopal episode in the past when she was a child and was found to be anemic. Not take anything for anemia and is not on a vitamin at this time. She is currently breast-feeding a [id number]. She denies any other medical problems she denies any chest pain shortness of breath headache there is been no GI bleeding no black tarry stools no excessive menses. She denies any abdominal or pelvic pain she is not been having bleeding with this . Review of systems: As per history of present illness and below otherwise all systems reviewed and negative. Past medical history: As per history of present illness and as reviewed below otherwise noncontributory. Surgical history: As per history of present illness and as reviewed below otherwise noncontributory. Social history: No reported history of drug or alcohol abuse. Family history: As per history of present illness and as reviewed below otherwise noncontributory. Physical exam: HEENT: Atraumatic, normocephalic, pupils reactive, negative for conjunctival pallor or scleral icterus, mucous membranes moist, throat clear, neck supple, nontender, trachea midline. Lungs: Clear to auscultation, breath sounds equal bilaterally, chest nontender. Heart: S1S2, regular, negative for clicks, rubs, or JVD. Abdomen: Soft, nondistended, nontender. Negative for masses or hepatosplenomegaly. Negative for costovertebral tenderness. Pelvis: Stable nontender. Genitourinary: Deferred. Rectal: Normal rectal exam brown stool Hemoccult negative Extremities: Atraumatic, negative for cords or calf pain. Neurovascular unremarkable. Neuro: Awake, alert, oriented. Cranial nerves II through XII unremarkable. Cerebellum unremarkable. Motor and sensory unremarkable throughout. Exam nonfocal. Diagnostics: [] Therapeutics: [] Impression: Syncope [] Plan: Patient will have some fluids. Lab work will be sent and she will be reassessed. [] Definitive disposition and diagnosis as appropriate pending reevaluation and review of above. 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: Musculoskeletal History: Reports: None Neurological History: Reports: None Psychiatric History: Reports: None Endocrine/Metabolic History: Reports: None Social & Family History - Family History Family Medical History: Noncontributory - Tobacco Use Smoking Status *Q: Never Smoker - Caffeine Use Caffeine Use: Reports: Coffee, Tea ED ROS GENERAL - Review of Systems Review Of Systems: See Below ED EXAM, GENERAL - Physical Exam Exam: See Below EKG INTERPRETATION EKG Interpretation Comments: Normal sinus rhythm rate of 67 bpm no ischemic changes normal intervals normal axis read and interpreted by me Course - Vital Signs Text/Narrative:: Patient is feeling at her baseline she had some anemia the Hemoccult was negative her vital signs are stable discharge her home follow-up with OB and she is going to be prescribed a vitamin. Patient was hypotensive during her stay she received a couple liters of saline and this corrected the problem I obtained a ultrasound to rule out ectopic in this patient who had a syncopal episode there is a live intrauterine approximately 6 weeks she be discharged home follow-up with OB Last Recorded V/S: Last Vital Signs Temp 36.1 C 02/11/20 08:58 Pulse 66 02/11/20 12:49 Resp 15 02/11/20 12:49 BP 104/60 02/11/20 12:49 Pulse Ox 96 02/11/20 12:49 - Orders/Labs/Meds Orders: Active Orders 24 hr Category Date Time Status EKG Documentation Completion [RC] STAT Care 02/11/20 06:42 Active Labs: Laboratory Tests 02/11/20 02/11/20 02/11/20 Range/Units 06:20 06:20 06:55 WBC (4.0-11.0) K/uL RBC (4.30-5.90) M/uL Hgb (12.0-16.0) g/dL Hct (36.0-46.0) % MCV (80.0-98.0) fL MCH (27.0-32.0) pg MCHC (31.0-37.0) g/dL RDW Std Deviation (28.0-62.0) fl RDW Coeff of Amy (11.0-15.0) % Plt Count (150-400) K/uL MPV (7.40-12.00) fL Neut % (Auto) (48.0-80.0) % Lymph % (Auto) (16.0-40.0) % [place] % (Auto) (0.0-15.0) % Eos % (Auto) (0.0-7.0) % Baso % (Auto) (0.0-1.5) % Neut # (Auto) (1.4-5.7) K/uL Lymph # (Auto) (0.6-2.4) K/uL [place] # (Auto) (0.0-0.8) K/uL Eos # (Auto) (0.0-0.7) K/uL Baso # (Auto) (0.0-0.1) K/uL Nucleated RBC % /100WBC Nucleated RBCs # K/uL Sodium 137 (136-145) mmol/L Potassium 3.7 (3.5-5.1) mmol/L Chloride 103 (98-107) mmol/L Carbon Dioxide 22.3 (21.0-32.0) mmol/L BUN 16 (7.0-18.0) mg/dL Creatinine 0.7 (0.6-1.0) mg/dL Est Cr Clr Drug Dosing 98.71 mL/min Estimated GFR (MDRD) > 60.0 ml/min Glucose 86 (74-106) mg/dL Calcium 8.8 (8.5-10.1) mg/dL Total Bilirubin 0.2 (0.2-1.0) mg/dL AST 13 L (15-37) IU/L ALT 33 (14-63) IU/L Alkaline Phosphatase 113 (46-116) U/L Troponin I < 0.050 (0.000-0.056) ng/mL Total Protein 6.8 (6.4-8.2) g/dL Albumin 3.5 (3.4-5.0) g/dL Globulin 3.3 (2.6-4.0) g/dL Albumin/Globulin Ratio 1.1 (0.9-1.6) HCG, Quant mIU/mL Urine Color YELLOW Urine Appearance CLEAR Urine pH 6.5 (5.0-8.0) Ur Specific [place] 1.020 (1.001-1.035) Urine Protein NEGATIVE (NEGATIVE) mg/dL Urine Glucose (UA) NEGATIVE (NEGATIVE) mg/dL Urine Ketones NEGATIVE (NEGATIVE) mg/dL Urine Occult Blood NEGATIVE (NEGATIVE) Urine Nitrite NEGATIVE (NEGATIVE) Urine Bilirubin NEGATIVE (NEGATIVE) Urine Urobilinogen 0.2 (<2.0) EU/dL Ur Leukocyte Esterase NEGATIVE (NEGATIVE) Urine HCG, Qual POSITIVE (NEGATIVE) 02/11/20 02/11/20 Range/Units 06:55 06:55 WBC 10.03 (4.0-11.0) K/uL RBC 4.80 (4.30-5.90) M/uL Hgb 10.0 L (12.0-16.0) g/dL Hct 32.5 L (36.0-46.0) % MCV 67.7 L (80.0-98.0) fL MCH 20.8 L (27.0-32.0) pg MCHC 30.8 L (31.0-37.0) g/dL RDW Std Deviation 45.6 (28.0-62.0) fl RDW Coeff of Amy 18 H (11.0-15.0) % Plt Count 263 (150-400) K/uL MPV 10.20 (7.40-12.00) fL Neut % (Auto) 69.6 (48.0-80.0) % Lymph % (Auto) 24.1 (16.0-40.0) % [place] % (Auto) 5.3 (0.0-15.0) % Eos % (Auto) 0.9 (0.0-7.0) % Baso % (Auto) 0.1 (0.0-1.5) % Neut # (Auto) 7.0 H (1.4-5.7) K/uL Lymph # (Auto) 2.4 (0.6-2.4) K/uL [place] # (Auto) 0.5 (0.0-0.8) K/uL Eos # (Auto) 0.1 (0.0-0.7) K/uL Baso # (Auto) 0.0 (0.0-0.1) K/uL Nucleated RBC % 0.0 /100WBC Nucleated RBCs # 0 K/uL Sodium (136-145) mmol/L Potassium (3.5-5.1) mmol/L Chloride (98-107) mmol/L Carbon Dioxide (21.0-32.0) mmol/L BUN (7.0-18.0) mg/dL Creatinine (0.6-1.0) mg/dL Est Cr Clr Drug Dosing mL/min Estimated GFR (MDRD) ml/min Glucose (74-106) mg/dL Calcium (8.5-10.1) mg/dL Total Bilirubin (0.2-1.0) mg/dL AST (15-37) IU/L ALT (14-63) IU/L Alkaline Phosphatase (46-116) U/L Troponin I (0.000-0.056) ng/mL Total Protein (6.4-8.2) g/dL Albumin (3.4-5.0) g/dL Globulin (2.6-4.0) g/dL Albumin/Globulin Ratio (0.9-1.6) HCG, Quant 19626.0 mIU/mL Urine Color Urine Appearance Urine pH (5.0-8.0) Ur Specific [place] (1.001-1.035) Urine Protein (NEGATIVE) mg/dL Urine Glucose (UA) (NEGATIVE) mg/dL Urine Ketones (NEGATIVE) mg/dL Urine Occult Blood (NEGATIVE) Urine Nitrite (NEGATIVE) Urine Bilirubin (NEGATIVE) Urine Urobilinogen (<2.0) EU/dL Ur Leukocyte Esterase (NEGATIVE) Urine HCG, Qual (NEGATIVE) Meds: Medications Discontinued Medications Generic Name Dose Route Start Last Admin Trade Name Freq PRN Reason Stop Dose Admin Sodium Chloride 1,000 mls @ 999 mls/hr 02/11/20 07:42 02/11/20 07:48 Normal Saline IV 02/11/20 08:42 999 mls/hr .Bolus ONE Administration Sodium Chloride 1,000 mls @ 999 mls/hr 02/11/20 08:55 02/11/20 09:18 Normal Saline IV 02/11/20 09:55 999 mls/hr .Bolus ONE Administration Departure - Departure Time of Disposition: 13:00 Disposition: Home, Self-Care 01 Condition: Good Clinical Impression: Syncope Qualifiers: Weeks of gestation: less than 8 weeks Qualified Code(s): Z3A.01 - Less than 8 weeks gestation of - Discharge Information *PRESCRIPTION DRUG MONITORING PROGRAM REVIEWED*: Not Applicable *COPY OF PRESCRIPTION DRUG MONITORING REPORT IN PATIENT MANDA: Not Applicable Prescriptions: #103/Iron Fumarate/Fa [ ] 1 each PO DAILY #60 tablet Instructions: First Trimester of , [id number], Syncope, [id number] Referrals: PCP,None [Primary Care Provider] - Forms: ED Department Discharge Additional Instructions: The following information is given to patients seen in the emergency department who are being discharged to home. This information is to outline your options for follow-up care. We provide all patients seen in our emergency department with a follow-up referral. The need for follow-up, as well as the timing and circumstances, are variable depending upon the specifics of your emergency department visit. If you don't have a primary care physician on staff, we will provide you with a referral. We always advise you to contact your personal physician following an emergency department visit to inform them of the circumstance of the visit and for follow-up with them and/or the need for any referrals to a consulting specialist. The emergency department will also refer you to a specialist when appropriate. This referral assures that you have the opportunity for follow-up care with a specialist. All of these measure are taken in an effort to provide you with optimal care, which includes your follow-up. Under all circumstances we always encourage you to contact your private physician who remains a resource for coordinating your care. When calling for follow-up care, please make the office aware that this follow-up is from your recent emergency room visit. If for any reason you are refused follow-up, please contact the Emergency Department at and asked to speak to the emergency department charge nurse. [facility] [address] [place] [id number] [facility] [address] [place] [id number] Sepsis Event Note (ED) - Evaluation Sepsis Screening Result: No Definite Risk - Focused Exam Vital Signs: Vital Signs Temp Pulse Resp BP Pulse Ox 02/11/20 12:49 66 15 104/60 96 02/11/20 11:53 74 14 100/50 L 99 02/11/20 11:00 76 15 108/48 L 100 02/11/20 09:49 68 15 88/58 L 97 02/11/20 08:58 36.1 C 73 14 89/40 L 100 02/11/20 08:50 77 17 87/48 L 97 02/11/20 08:21 74 16 90/42 L 99 02/11/20 07:51 97/55 L 02/11/20 07:48 73 15 100 02/11/20 06:22 35.6 C L 81 16 100/62 100
[2020-02-11] MEDS ORDERED: Sodium Chloride 0.9% 1,000 ML IV ONE ×2 (07:42→08:55)
--- NOTE | 2020-02-11 12:52 | US ---
1st trimester obstetrical ultrasound: Multiple real-time images were obtained transvaginally. Comparison: No previous study. Dates: Current ultrasound: JANES 10/03/20, gestational age 6 weeks 3 days Single intrauterine gestational sac is seen. Small pole and yolk sac are noted. No subchorionic hemorrhage is identified. Maternal adnexa are within normal limits. There is some free fluid within the right adnexa most likely physiologic. Measurements: [place]-rump length: 2.74 cm - 6 weeks 0 days Mean sac diameter: 1.78 cm - 6 weeks 5 days Heart rate: 115 BPM Impression: 1. Single intrauterine gestation. Dates as noted above. 2. Low heart rate most likely relating to early gestational age. 3. Free fluid within the right maternal adnexa most likely physiologic. Diagnostic code #2 This report was dictated in MDT
== END 2020-02-11 13:12 | disposition home or self-care (01) ==
LOC: MW.ED 06:12
DX: O99.89 Other specified diseases and conditions complicating pregnancy, childbirth and the puerperium (principal); R55 Syncope and collapse; Z3A.01 Less than 8 weeks gestation of pregnancy
CPT/HCPCS: 36415; 71045; 76801; 80053; 81003; 81025; 84484; 84702; 85025; 93005; 96360; 96361; 99285; J7030; 99283

== ENCOUNTER 2020-07-14 06:16 | Emergency (ER) | payer OTHER ==
--- NOTE | 2020-07-14 06:25 | EDM.PDOC ---
ED HPI GENERAL MEDICAL PROBLEM - General Chief Complaint: Chest Pain Stated Complaint: CHEST PAIN Time Seen by Provider: 07/14/20 06:23 Source of Information: Reports: Patient, EMS History Limitations: Reports: No Limitations - History of Present Illness INITIAL COMMENTS - FREE TEXT/NARRATIVE: 35-year-old female [place] 29 weeks presents with epigastric abdominal pain at 5 AM today. Pain was described as aching pressure sensation lasted 10 minutes, nonradiating, localized to the epigastrium, mild in severity, no alleviating or exacerbating factors. She did eat rice at midnight. She felt short of breath and nauseous during the abdominal pain. She denies any abdominal pain currently. She denies vaginal bleeding, contractions, leakage of fluid. OB: [facility] [place] ROS: A 10-point review of systems, other than pertinent positives and negatives as stated per HPI, is otherwise negative Past medical history: No additional pertinent history Past Surgical history: No additional pertinent history Social history: No additional pertinent history Family history: No additional pertinent history PHYSICAL EXAM General: AOx4, GCS = 15, No distress HEENT: dry mucous membrane Neck: supple, no meningismus, no Kernig or Brudzinski Cardiac: S1S2 RRR Respiratory: CTAB, no crackles or rales, no wheezing Abdomen: Soft, gravid, nontender, no rebound or guarding, nondistended, no pulsatile mass. FHT 143. Back: nontender Musculoskeletal: NVI distally, no deformity Neuro: No focal deficits, CN 2 - 12 WNL. 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 EKG and rhythm strip interpreted by me at 0616 Course - Vital Signs Last Recorded V/S: Last Vital Signs Temp 96.9 F 07/14/20 06:24 Pulse 83 07/14/20 06:24 Resp 18 07/14/20 06:24 BP 111/67 07/14/20 06:24 Pulse Ox 98 07/14/20 06:24 - Orders/Labs/Meds Orders: Active Orders 24 hr Category Date Time Status Cardiac Monitoring [RC] . DIRECTED Care 07/14/20 06:25 Active Pulse Oximetry [RC] ASDIRECTED Care 07/14/20 06:25 Active Chest 1V Frontal [CR] Stat Exams 07/14/20 06:45 Taken Labs: Laboratory Tests 07/14/20 07/14/20 07/14/20 Range/Units 06:24 06:24 06:24 WBC 9.07 (4.0-11.0) K/uL RBC 4.74 (4.30-5.90) M/uL Hgb 10.6 L (12.0-16.0) g/dL Hct 34.4 L (36.0-46.0) % MCV 72.6 L (80.0-98.0) fL MCH 22.4 L (27.0-32.0) pg MCHC 30.8 L (31.0-37.0) g/dL RDW Std Deviation 46.1 (28.0-62.0) fl RDW Coeff of Amy 18 H (11.0-15.0) % Plt Count 216 (150-400) K/uL MPV 10.50 (7.40-12.00) fL Neut % (Auto) 69.4 (48.0-80.0) % Lymph % (Auto) 23.2 (16.0-40.0) % [place] % (Auto) 6.4 (0.0-15.0) % Eos % (Auto) 0.9 (0.0-7.0) % Baso % (Auto) 0.1 (0.0-1.5) % Neut # (Auto) 6.3 H (1.4-5.7) K/uL Lymph # (Auto) 2.1 (0.6-2.4) K/uL [place] # (Auto) 0.6 (0.0-0.8) K/uL Eos # (Auto) 0.1 (0.0-0.7) K/uL Baso # (Auto) 0.0 (0.0-0.1) K/uL Nucleated RBC % 0.0 /100WBC Nucleated RBCs # 0 K/uL Sodium 138 (136-145) mmol/L Potassium 3.2 L (3.5-5.1) mmol/L Chloride 106 (98-107) mmol/L Carbon Dioxide 20.8 L (21.0-32.0) mmol/L BUN 5 L (7.0-18.0) mg/dL Creatinine 0.5 L (0.6-1.0) mg/dL Est Cr Clr Drug Dosing 119.63 mL/min Estimated GFR (MDRD) > 60.0 ml/min Glucose 90 (74-106) mg/dL Calcium 8.6 (8.5-10.1) mg/dL Total Bilirubin 0.3 (0.2-1.0) mg/dL AST 24 (15-37) IU/L ALT 25 (14-63) IU/L Alkaline Phosphatase 153 H (46-116) U/L Troponin I < 0.050 (0.000-0.056) ng/mL Total Protein 6.0 L (6.4-8.2) g/dL Albumin 2.4 L (3.4-5.0) g/dL Globulin 3.6 (2.6-4.0) g/dL Albumin/Globulin Ratio 0.7 L (0.9-1.6) Lipase 162 (73-393) U/L - Re-Assessments/Exams Free Text/Narrative Re-Assessment/Exam: 07/14/20 07:[address] Dos Santos, will assess patient in labor and delivery. Departure - Departure Time of Disposition: 07:08 Disposition: Still A Patient 30 Condition: Good Clinical Impression: Gastritis Qualifiers: Weeks of gestation: less than 8 weeks Qualified Code(s): Z3A.01 - Less than 8 weeks gestation of - Discharge Information *PRESCRIPTION DRUG MONITORING PROGRAM REVIEWED*: Not Applicable *COPY OF PRESCRIPTION DRUG MONITORING REPORT IN PATIENT MANDA: Not Applicable Referrals: PCP,None [Primary Care Provider] - Forms: ED Department Discharge Sepsis Event Note (ED) - Focused Exam Vital Signs: Vital Signs Temp Pulse Resp BP Pulse Ox 07/14/20 06:24 96.9 F 83 18 111/67 98 - My Orders Last 24 Hours: My Active Orders 07/14/20 06:25 Cardiac Monitoring [RC] . DIRECTED Pulse Oximetry [RC] ASDIRECTED 07/14/20 06:45 Chest 1V Frontal [CR] Stat - Assessment/Plan Last 24 Hours: My Active Orders 07/14/20 06:25 Cardiac Monitoring [RC] . DIRECTED Pulse Oximetry [RC] ASDIRECTED 07/14/20 06:45 Chest 1V Frontal [CR] Stat
[2020-07-14 06:56] LABS: BLOOD UREA NITROGEN,BUN 5 mg/dL (7.0-18.0); CARBON DIOXIDE,CO2 20.8 mmol/L (21.0-32.0); CHLORIDE,CL 106 mmol/L (98-107); GLUCOSE RANDOM 90 mg/dL (74-106); POTASSIUM,K 3.2 mmol/L (3.5-5.1); SODIUM,NA 138 mmol/L (136-145)
--- NOTE | 2020-07-14 07:14 | CR ---
INDICATION: Chest pain TECHNIQUE: Chest 1 view. COMPARISON: 11 February 2020 FINDINGS: Cardiovascular and mediastinum: Heart size and vasculature are normal in caliber and appearance. Mediastinum is within normal limits. Lungs and pleural space: Lungs are clear. No sign of infiltrate or mass. No sign of pleural effusion. No pneumothorax. Bones and soft tissues: No significant findings. Unchanged linear metallic density over the posterior lateral 7th left rib. IMPRESSION: Unremarkable chest. Dictated by Temo Negron MD @ Jul 14 2020 7:12AM Signed by Dr. Temo Negron @ Jul 14 2020 7:13AM
== END 2020-07-14 07:16 | disposition still patient (30) ==
LOC: MW.ED 06:16
DX: O99.613 Diseases of the digestive system complicating pregnancy, third trimester (principal); K29.70 Gastritis, unspecified, without bleeding; Z3A.29 29 weeks gestation of pregnancy
CPT/HCPCS: 36415; 71045; 71045-26; 80053; 83690; 84484; 85025; 93005; 93010; 99283; 99285-25

== ENCOUNTER 2020-10-03 05:07 | Inpatient (IN) | payer OTHER, SELFPAY ==
--- OUTSIDE RECORDS SUMMARY | 2020-09-24 12:34 | XMSREPORT ---
:1985 Author Name Clare Abarca Address Unavailable Unavailable , Care Team Providers Name Role Phone Unavailable Unavailable Unavailable Meliza Betancourt Unavailable Unavailable Unavailable Unavailable Unavailable Reason for Referral For: History of delivery Section Schedule 10/03/2020 Assessments No Information Problems Blood type, Rh negative (V49.89) (Z67.91) Anemia in (648.20) (O99.019) Encounter for related examination (V22.1) (Z34.90) Multigravida in third trimester (V22.1) (Z34.83) History of delivery (V45.89) (Z98.891) Encounter for immunization (V03.89) (Z23) Allergies and Adverse Reactions No Known Allergies (Allergy) Medications Pre-Dayanara Formula Oral Tablet; TAKE 1 TABLET DAILY. , R.N. Start: 15-Feb-2020 Refills: 0 Procedures Request for Surgery Date: 16-Aug-2020 GROUP B STREP BY PCR Date: 13-Sep-2020 History of section Status: Comp leted Immunizations Fluzone Quadrivalent 0.5 ML Intramuscular Suspension P refilled Syringe 0 On: 23-May-2018 Flulaval Quadrivalent 0.5 ML Intramuscular Suspension Prefilled Syringe On: 23-May-2018 Lot #: [id number], GLAXO MAGDALENO MEDINA Boostrix 5-2.5-18.5 Intramuscular Suspension On: 15-Aug-2018 Lot #: [id number], GLAXO MAGDALENO MEDINA Rho(D) Immune globulin- IV or IM On: 19-Jul-2020 Lot #: [id number], CSL BEHRING Boostrix 5-2.5-18.5 Intramuscular Suspension On: 04-Sep-2020 Lot #: [id number], GLAXO MAGDALENO MEDINA Family History No pertinent family history (V49.89) (Z78.9) Status: Active Comments: Family History Social History - Never smoked tobacco Plan of Treatment Hospital Referral Request Appointment; Jaylan Escobedo M.D. Start: 23-Sep-2020 14:00 Re quest Appointment; Jaylan Escobedo M.D. Start: 30-Sep-2020 7:30 Requ est Appointment; Jaylan Escobedo M.D. Start: 11-Oct-2020 9:45 Req uest Planned Goals not documented Results No Known Results Results not documented Vital Signs 13-Sep-2020 15:25 Systolic 114 mm[Hg] Comments: Location: LUE; Position: Sitting Diastolic 62 mm[Hg] Comments: Location: LUE; Position: Sitting Height 61 in Weight 174 lb BMI Calculated 32.88 kg/m2 BSA Calculated 1.78 m2 Temperature 98.5 f Heart Rate 100 /min Respiration 18 /min O2 Saturation 100 % 04-Sep-2020 9:01 Systolic 108 mm[Hg] Comments: Location: LUE; Position: Sitting Diastolic 64 mm[Hg] Comments: Location: LUE; Position: Sitting Height 61 in Weight 174.8 lb BMI Calculated 33.03 kg/m2 BSA Calculated 1.78 m2 Temperature 97.6 f Heart Rate 101 /min Respiration 18 /min O2 Saturation 99 % Encounters Appointment; Jaylan Escobedo M.D. 13-Sep-2020 15:00 Encounter Diagnosis: Problem not documented Appointment; Jaylan Escobedo M.D. 04-Sep-2020 9:00 Encounter Diagnosis: Problem not documented Appointment; Jaylan Escobedo M.D. 16-Aug-2020 9:00 Encounter Diagnosis: Problem not documented Appointment; Jaylan Escobedo M.D. 26-Jun-2020 9:15 Encounter Diagnosis: Problem not documented Appointment; Nila Millard CNM 03-Apr-2020 8:15 Encounter Diagnosis: Problem not documented Appointment; Nila Millard CNM 04-Mar-2020 9:00 Encounter Diagnosis: Problem not documented Appointment; Nila Millard CNM 11-Jan-2019 8:30 Encounter Diagnosis: Problem not documented Appointment; Nila Millard CNM 09-Dec-2018 13:30 Encounter Diagnosis: Problem not documented Appointment; Jaylan Escobedo M.D. 29-Nov-2018 8:30 Encounter Diagnosis: Problem not documented Appointment; Nila Millard CNM 14-Nov-2018 11:30 Encounter Diagnosis: Problem not documented Appointment; Nila Millard CNM 07-Nov-2018 11:30 Encounter Diagnosis: Problem not documented Appointment; Nila Millard CNM 31-Oct-2018 11:30 Encounter Diagnosis: Problem not documented Appointment; Nila Millard CNM 24-Oct-2018 11:30 Encounter Diagnosis: Problem not documented Appointment; Nila Millard CNM 17-Oct-2018 11:15 Encounter Diagnosis: Problem not documented Appointment; Nila Millard CNM 10-Oct-2018 11:15 Encounter Diagnosis: Problem not documented Appointment; Nila Millard CNM 26-Sep-2018 13:30 Encounter Diagnosis: Problem not documented
[2020-10-03] MEDS ORDERED: Sodium Chloride 0.9% 10 ML SDV IV PRN (05:10)
[2020-10-03] MEDS ORDERED: ceFAZolin 2 GM in Premix Bag 1 BAG IV ONE (05:10)
[2020-10-03] MEDS ORDERED: Water For Irrigation,Sterile 1,000 ML Container IRR PRN (05:10)
[2020-10-03] MEDS ORDERED: Carboprost Tromethamine 250 MCG/1 ML Amp IM PRN (05:10)
[2020-10-03] MEDS ORDERED: Lidocaine 1% 50 ML MDV INJECT PRN (05:10)
[2020-10-03] MEDS ORDERED: Sodium Chloride 0.9% 10 ML Syringe FLUSH PRN (05:10)
[2020-10-03] MEDS ORDERED: Citric Acid/Sodium Citrate Solution 30 ML Cup PO ONE (05:10)
[2020-10-03] MEDS ORDERED: Misoprostol 200 MCG Tab PO PRN (05:10)
[2020-10-03] MEDS ORDERED: Nalbuphine 10 MG/1 ML Vial IVPUSH PRN ×2 (05:10→09:45)
[2020-10-03] MEDS ORDERED: Methylergonovine 0.2 MG/1 ML Amp IM PRN (05:10)
[2020-10-03] MEDS ORDERED: Butorphanol 1 MG/ML SDV IVPUSH PRN (05:10)
[2020-10-03] MEDS ORDERED: Sodium Chloride 0.9% 2.5 ML Syringe FLUSH PRN (05:10)
[2020-10-03] MEDS ORDERED: Tranexamic Acid 1,000 MG in Sodium Chloride 0.9% 100 ML IV PRN (05:10)
[2020-10-03] MEDS ORDERED: Lactated Ringers 1,000 ML IV SCH (05:15)
[2020-10-03] MEDS ORDERED: Oxytocin/0.9 % Sodium Chloride 30 UNIT/500 ML BAG IV SCH ×2 (05:15)
[2020-10-03] MEDS: Lactated Ringers 1,000 ML IV SCH ×2 (05:30→07:47)
--- NOTE | 2020-10-03 06:53 | PCM.PREANE ---
Preanesthetic Assessment - Anesthesia/Transfusion/Family Hx Anesthesia History: No Prior Anesthesia Family History of Anesthesia Reaction: No Transfusion History: No Prior Transfusion(s) Intubation History: Unknown - Review of Systems General: No Symptoms Pulmonary: No Symptoms Cardiovascular: No Symptoms Gastrointestinal: No Symptoms Neurological: No Symptoms Other: Reports: None - Physical Assessment Height: 5 ft 1 in Weight: 78.471 kg ASA Class: 2 Mental Status: Alert & Oriented x3 Airway Class: Mallampati = 1 Dentition: Reports: Normal Dentition Thyro-Mental Finger Breadths: 3 Mouth Opening Finger Breadths: 3 ROM/Head Extension: Full Lungs: Clear to Auscultation, Normal Respiratory Effort Cardiovascular: Regular Rate, Regular Rhythm - Lab Values: Laboratory Last Values WBC 6.93 K/uL (4.0-11.0) 10/03/20 05:45 RBC 5.13 M/uL (4.30-5.90) 10/03/20 05:45 Hgb 11.5 g/dL (12.0-16.0) L 10/03/20 05:45 Hct 35.9 % (36.0-46.0) L 10/03/20 05:45 MCV 70.0 fL (80.0-98.0) L 10/03/20 05:45 MCH 22.4 pg (27.0-32.0) L 10/03/20 05:45 MCHC 32.0 g/dL (31.0-37.0) 10/03/20 05:45 RDW Std Deviation 44.0 fl (28.0-62.0) 10/03/20 05:45 RDW Coeff of Amy 17 % (11.0-15.0) H 10/03/20 05:45 Plt Count 159 K/uL (150-400) 10/03/20 05:45 Nucleated RBC % 0.0 /100WBC 10/03/20 05:45 Nucleated RBCs # 0 K/uL 10/03/20 05:45 - Allergies Allergies/Adverse Reactions: Allergies Allergy/AdvReac Type Severity Reaction Status Date / Time No Known Allergies Allergy Verified 09/27/20 08:11 - Blood Blood Available: No - Anesthesia Plan Pre-Op Medication Ordered: None - Acknowledgements Anesthesia Type Planned: Spinal (GETA back-up plan) Pt an Appropriate Candidate for the Planned Anesthesia: Yes Alternatives and Risks of Anesthesia Discussed w Pt/Guardian: Yes Pt/Guardian Understands and Agrees with Anesthesia Plan: Yes PreAnesthesia Questionnaire - Past Health History Medical/Surgical History: Denies Medical/Surgical History HEENT History: Reports: None Cardiovascular History: Reports: None Respiratory History: Reports: None Gastrointestinal History: Reports: None Genitourinary History: Reports: 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: Musculoskeletal History: Reports: None Neurological History: Reports: None Psychiatric History: Reports: None Endocrine/Metabolic History: Reports: None - Infectious Disease History Infectious Disease History: Reports: None - Past Surgical History Head Surgeries/Procedures: Reports: None Female Surgical History: Reports: Section - SUBSTANCE USE Tobacco Use Status *Q: Never Tobacco User Second Hand Smoke Exposure: No Recreational Drug Use History: No - HOME MEDS Home Medications: Home Meds #103/Iron Fumarate/Fa [ ] 1 each PO DAILY #60 tablet 02/11/20 [Rx] - CURRENT (IN HOUSE) MEDS Current Meds: Current Medications Butorphanol Tartrate (Stadol) 1 mg IVPUSH Q1H PRN PRN Reason: Pain Carboprost Tromethamine (Hemabate Ds) 250 mcg IM ASDIRECTED PRN PRN Reason: Post Hemorrhage Oxytocin/Sodium Chloride (Oxytocin 30 Unit/500 Ml-Ns) 30 unit in 500 mls @ 250 mls/hr IV TITRATE CLYDE Lactated Ringer's (Ringers, Lactated) 1,000 mls @ 150 mls/hr IV ASDIRECTED CLYDE Oxytocin/Sodium Chloride (Oxytocin 30 Unit/500 Ml-Ns) 30 unit in 500 mls @ 999 mls/hr IV TITRATE CLYDE Tranexamic Acid 1,000 mg/ (Sodium Chloride) 110 mls @ 660 mls/hr IV ONETIME PRN PRN Reason: Bleeding Lactated Ringer's (Ringers, Lactated) 1,000 mls @ 500 mls/hr IV [facility] Last Infusion: 10/03/20 06:49 Dose: 999 mls/hr Documented by: Lidocaine HCl (Xylocaine 1%) 50 ml INJECT ONETIME PRN PRN Reason: Laceration repair Methylergonovine Maleate (Methergine) 0.2 mg IM ASDIRECTED PRN PRN Reason: Post Hemorrhage Misoprostol (Cytotec) 200 mcg PO ONETIME PRN PRN Reason: Post Hemorrhage Nalbuphine HCl (Nubain) 10 mg IVPUSH Q1H PRN PRN Reason: Pain (severe 7-10) Sodium Chloride (Saline Flush) 10 ml FLUSH ASDIRECTED PRN PRN Reason: Keep Vein Open Sodium Chloride (Saline Flush) 2.5 ml FLUSH ASDIRECTED PRN PRN Reason: Keep Vein Open Sodium Chloride (Normal Saline) 10 ml IV ASDIRECTED PRN PRN Reason: IV Use Sterile Water (Sterile Water For Irrigation) 1,000 ml IRR ASDIRECTED PRN PRN Reason: delivery Discontinued Medications Citric Acid/Sodium Citrate (Bicitra Solution) 30 ml PO ONETIME ONE Stop: 10/03/20 05:11 Cefazolin Sodium/Dextrose 2 gm (/ Premix) 50 mls @ 100 mls/hr IV ONETIME ONE Stop: 10/03/20 05:39
--- NOTE | 2020-10-03 07:03 | PCM.PREANE ---
Preanesthetic Assessment - Anesthesia/Transfusion/Family Hx Anesthesia History: No Prior Anesthesia Family History of Anesthesia Reaction: No Transfusion History: No Prior Transfusion(s) Intubation History: Unknown - Review of Systems General: No Symptoms Pulmonary: No Symptoms - Physical Assessment Height: 5 ft 1 in Weight: 78.471 kg - Lab Values: Laboratory Last Values WBC 6.93 K/uL (4.0-11.0) 10/03/20 05:45 RBC 5.13 M/uL (4.30-5.90) 10/03/20 05:45 Hgb 11.5 g/dL (12.0-16.0) L 10/03/20 05:45 Hct 35.9 % (36.0-46.0) L 10/03/20 05:45 MCV 70.0 fL (80.0-98.0) L 10/03/20 05:45 MCH 22.4 pg (27.0-32.0) L 10/03/20 05:45 MCHC 32.0 g/dL (31.0-37.0) 10/03/20 05:45 RDW Std Deviation 44.0 fl (28.0-62.0) 10/03/20 05:45 RDW Coeff of Amy 17 % (11.0-15.0) H 10/03/20 05:45 Plt Count 159 K/uL (150-400) 10/03/20 05:45 Nucleated RBC % 0.0 /100WBC 10/03/20 05:45 Nucleated RBCs # 0 K/uL 10/03/20 05:45 - Allergies Allergies/Adverse Reactions: Allergies Allergy/AdvReac Type Severity Reaction Status Date / Time No Known Allergies Allergy Verified 09/27/20 08:11 PreAnesthesia Questionnaire - Past Health History Medical/Surgical History: Denies Medical/Surgical History HEENT History: Reports: None Cardiovascular History: Reports: None Respiratory History: Reports: None Gastrointestinal History: Reports: None Genitourinary History: Reports: 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: Musculoskeletal History: Reports: None Neurological History: Reports: None Psychiatric History: Reports: None Endocrine/Metabolic History: Reports: None - Infectious Disease History Infectious Disease History: Reports: None - Past Surgical History Head Surgeries/Procedures: Reports: None Female Surgical History: Reports: Section - SUBSTANCE USE Tobacco Use Status *Q: Never Tobacco User Second Hand Smoke Exposure: No Recreational Drug Use History: No - HOME MEDS Home Medications: Home Meds #103/Iron Fumarate/Fa [ ] 1 each PO DAILY #60 tablet 02/11/20 [Rx] - CURRENT (IN HOUSE) MEDS Current Meds: Current Medications Butorphanol Tartrate (Stadol) 1 mg IVPUSH Q1H PRN PRN Reason: Pain Carboprost Tromethamine (Hemabate Ds) 250 mcg IM ASDIRECTED PRN PRN Reason: Post Hemorrhage Oxytocin/Sodium Chloride (Oxytocin 30 Unit/500 Ml-Ns) 30 unit in 500 mls @ 250 mls/hr IV TITRATE CLYDE Lactated Ringer's (Ringers, Lactated) 1,000 mls @ 150 mls/hr IV ASDIRECTED CLYDE Oxytocin/Sodium Chloride (Oxytocin 30 Unit/500 Ml-Ns) 30 unit in 500 mls @ 999 mls/hr IV TITRATE CLYDE Tranexamic Acid 1,000 mg/ (Sodium Chloride) 110 mls @ 660 mls/hr IV ONETIME PRN PRN Reason: Bleeding Lactated Ringer's (Ringers, Lactated) 1,000 mls @ 500 mls/hr IV BOLUS CLYDE Last Infusion: 10/03/20 06:49 Dose: 999 mls/hr Documented by: Lidocaine HCl (Xylocaine 1%) 50 ml INJECT ONETIME PRN PRN Reason: Laceration repair Methylergonovine Maleate (Methergine) 0.2 mg IM ASDIRECTED PRN PRN Reason: Post Hemorrhage Misoprostol (Cytotec) 200 mcg PO ONETIME PRN PRN Reason: Post Hemorrhage Nalbuphine HCl (Nubain) 10 mg IVPUSH Q1H PRN PRN Reason: Pain (severe 7-10) Sodium Chloride (Saline Flush) 10 ml FLUSH ASDIRECTED PRN PRN Reason: Keep Vein Open Sodium Chloride (Saline Flush) 2.5 ml FLUSH ASDIRECTED PRN PRN Reason: Keep Vein Open Sodium Chloride (Normal Saline) 10 ml IV ASDIRECTED PRN PRN Reason: IV Use Sterile Water (Sterile Water For Irrigation) 1,000 ml IRR ASDIRECTED PRN PRN Reason: delivery Discontinued Medications Citric Acid/Sodium Citrate (Bicitra Solution) 30 ml PO ONETIME ONE Stop: 10/03/20 05:11 Cefazolin Sodium/Dextrose 2 gm (/ Premix) 50 mls @ 100 mls/hr IV ONETIME ONE Stop: 10/03/20 05:39
[2020-10-03] MEDS ORDERED: Octyl 2-Cyanoacrylate 1 Tube ONE (07:21)
[2020-10-03] MEDS ORDERED: Oxytocin 10 Units/1 ML SDV ONE (07:22)
[2020-10-03] MEDS ORDERED: Ondansetron 4 MG/2 ML SDV ONE (07:22)
[2020-10-03] MEDS ORDERED: Dexamethasone 4 MG/ML 5 ML MDV ONE (07:22)
[2020-10-03] MEDS ORDERED: fentaNYL 100 MCG/2 ML SDV ONE (07:25)
[2020-10-03] MEDS ORDERED: Morphine PF 10 MG/10 ML SDV ONE (07:26)
[2020-10-03] MEDS ORDERED: ceFAZolin 1 GM Vial ONE (07:28)
--- NOTE | 2020-10-03 08:00 | PCM.LDHP ---
L&D History of Present Illness - General Date of Service: 10/03/20 Admit Problem/Dx: Patient Status Order with Admit Dx/Problem 10/03/20 05:10 Patient Status [ADT] Routine Admission Diagnosis/Problem Admission Diagnosis/Problem 10/03/20 07:56 presenting to L&D at 39 2/7 weeks (JANES: 10/08/20 by early ultrasound) for repeat delivery by Dr. Escobedo. O-, Rubella immune, GBS negative. Source of Information: Patient History Limitations: Reports: No Limitations - Related Data Allergies/Adverse Reactions: Allergies Allergy/AdvReac Type Severity Reaction Status Date / Time No Known Allergies Allergy Verified 09/27/20 08:11 Home Medications: Home Meds #103/Iron Fumarate/Fa [ ] 1 each PO DAILY #60 tablet 02/11/20 [Rx] Past Medical History - Past Health History Medical/Surgical History: Denies Medical/Surgical History HEENT History: Reports: None Cardiovascular History: Reports: None Respiratory History: Reports: None Gastrointestinal History: Reports: None Genitourinary History: Reports: None 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: Musculoskeletal History: Reports: None Neurological History: Reports: None Psychiatric History: Reports: None Endocrine/Metabolic History: Reports: None - Infectious Disease History Infectious Disease History: Reports: None - Past Surgical History Head Surgeries/Procedures: Reports: None Female Surgical History: Reports: Section Social & Family History - Family History Family Medical History: No Pertinent Family History - Tobacco Use Tobacco Use Status *Q: Never Tobacco User Second Hand Smoke Exposure: No - Caffeine Use Caffeine Use: Reports: Coffee - Recreational Drug Use Recreational Drug Use: No Drug Use in Last 12 Months: No H&P Review of Systems - Review of Systems: Review Of Systems: See Below General: Reports: No Symptoms HEENT: Reports: No Symptoms Pulmonary: Reports: No Symptoms Cardiovascular: Reports: No Symptoms Gastrointestinal: Reports: No Symptoms Genitourinary: Reports: No Symptoms Musculoskeletal: Reports: No Symptoms Skin: Reports: No Symptoms Psychiatric: Reports: No Symptoms Neurological: Reports: No Symptoms Hematologic/Lymphatic: Reports: No Symptoms Immunologic: Reports: No Symptoms L&D Exam - Exam Exam: See Below - Vital Signs Weight: 173 lb - OB Specific Movement: Active Heart Tones: Present Heart Rate (FHR) Variability: Moderate (6-25 bmp) - Exam General: Alert, Oriented, Cooperative Lungs: Normal Respiratory Effort Cardiovascular: Regular Rate, Regular Rhythm GI/Abdominal Exam: Soft, Non-Tender Rectal Exam: Deferred Genitourinary: Deferred Back Exam: Normal Inspection, Full Range of Motion Extremities: Normal Inspection, Normal Range of Motion, Non-Tender, Normal Capillary Refill Skin: Warm, Dry, Intact Neurological: Strength Equal Bilateral, Normal Gait, Normal Speech, Normal Tone, Sensation Intact Psychiatric: Alert, Normal Affect, Normal Mood - Patient Data Lab Results Last 24 hrs: Laboratory Results - last 24 hr 10/03/20 10/03/20 Range/Units 05:45 05:45 WBC 6.93 (4.0-11.0) K/uL RBC 5.13 (4.30-5.90) M/uL Hgb 11.5 L (12.0-16.0) g/dL Hct 35.9 L (36.0-46.0) % MCV 70.0 L (80.0-98.0) fL MCH 22.4 L (27.0-32.0) pg MCHC 32.0 (31.0-37.0) g/dL RDW Std Deviation 44.0 (28.0-62.0) fl RDW Coeff of Amy 17 H (11.0-15.0) % Plt Count 159 (150-400) K/uL Nucleated RBC % 0.0 /100WBC Nucleated RBCs # 0 K/uL Blood Type O NEGATIVE Antibody Screen NEGATIVE Result Diagrams: 10/03/20 05:45 - Problem List (1) Supervision of normal IUP (intrauterine ) in multigravida SNOMED Code(s): 143476350, 182656036, [id number] ICD Code: Z34.80 - ENCOUNTER FOR SUPRVSN OF NORMAL , UNSP TRIMESTER Status: Acute Priority: High Current Visit: Yes Qualifiers: Trimester: third trimester Qualified Code(s): Z34.83 - Encounter for supervision of other normal , third trimester Problem List Initiated/Reviewed/Updated: Yes Orders Last 24hrs: Active Orders 24 hr Category Date Time Status Patient Status [ADT] Routine ADT 10/03/20 05:10 Active Heart Tones [RC] CONTINUOUS Care 10/03/20 05:10 Active Non Stress Test [RC] PER UNIT ROUTINE Care 10/03/20 05:10 Active May Shower [RC] ASDIRECTED Care 10/03/20 05:10 Active Notify Provider Vital Signs [RC] PRN Care 10/03/20 05:13 Active Notify Provider [RC] PRN Care 10/03/20 05:10 Active Procedure Site Prep Instruct [RC] ASDIRECTED Care 10/03/20 05:10 Active Up ad Malia [RC] ASDIRECTED Care 10/03/20 05:10 Active Up ad Malia [RC] ASDIRECTED Care 10/03/20 05:10 Active Verify Patient Consent Obtain [RC] ASDIRECTED Care 10/03/20 05:10 Active Vital Signs [RC] PER UNIT ROUTINE Care 10/03/20 05:10 Active RPR (SYPHILIS SERO) W/ RFLX [REF] Routine Lab 10/03/20 05:45 Received Butorphanol [Stadol] Med 10/03/20 05:10 Active 1 mg IVPUSH Q1H PRN Carboprost Tromethamine [Hemabate DS] Med 10/03/20 05:10 Active 250 mcg IM ASDIRECTED PRN Lactated Ringers [Ringers, Lactated] 1,000 ml Med 10/03/20 05:15 Active IV ASDIRECTED Lactated Ringers [Ringers, Lactated] 1,000 ml Med 10/03/20 05:15 Active IV BOLUS Lidocaine 1% [Xylocaine 1%] Med 10/03/20 05:10 Active 50 ml INJECT ONETIME PRN Methylergonovine [Methergine] Med 10/03/20 05:10 Active 0.2 mg IM ASDIRECTED PRN Nalbuphine [Nubain] Med 10/03/20 05:10 Active 10 mg IVPUSH Q1H PRN Oxytocin/0.9 % Sodium Chloride [Oxytocin 30 Unit/500 ML Med 10/03/20 05:15 Active -NS] 30 unit in 500 ml IV TITRATE Oxytocin/0.9 % Sodium Chloride [Oxytocin 30 Unit/500 ML Med 10/03/20 05:15 Active -NS] 30 unit in 500 ml IV TITRATE Sodium Chloride 0.9% [Normal Saline] Med 10/03/20 05:10 Active 10 ml IV ASDIRECTED PRN Sodium Chloride 0.9% [Saline Flush] Med 10/03/20 05:10 Active 10 ml FLUSH ASDIRECTED PRN Sodium Chloride 0.9% [Saline Flush] Med 10/03/20 05:10 Active 2.5 ml FLUSH ASDIRECTED PRN Tranexamic Acid [Cyklokapron] 1,000 mg Med 10/03/20 05:10 Active Sodium Chloride 0.9% [Normal Saline] 100 ml IV ONETIME Water For Irrigation,Sterile [Sterile Water for Med 10/03/20 05:10 Active Irrigation] 1,000 ml IRR ASDIRECTED PRN miSOPROStoL [Cytotec] Med 10/03/20 05:10 Active 200 mcg PO ONETIME PRN Scalp Electrode [WOMSER] Per Unit Routine Oth 10/03/20 05:10 Ordered Peripheral IV Insertion Adult [OM.PC] Routine Oth 10/03/20 05:10 Ordered Peripheral IV Insertion Adult [OM.PC] Routine Oth 10/03/20 05:10 Ordered Schedule Procedure [COMM] Per Unit Routine Oth 10/03/20 05:10 Ordered Resuscitation Status Routine Resus Stat 10/03/20 05:10 Ordered Medication Orders Butorphanol Tartrate (Stadol) 1 mg IVPUSH Q1H PRN PRN Reason: Pain Carboprost Tromethamine (Hemabate Ds) 250 mcg IM ASDIRECTED PRN PRN Reason: Post Hemorrhage Oxytocin/Sodium Chloride (Oxytocin 30 Unit/500 Ml-Ns) 30 unit in 500 mls @ 250 mls/hr IV TITRATE CLYDE Lactated Ringer's (Ringers, Lactated) 1,000 mls @ 150 mls/hr IV ASDIRECTED CLYDE Oxytocin/Sodium Chloride (Oxytocin 30 Unit/500 Ml-Ns) 30 unit in 500 mls @ 999 mls/hr IV TITRATE CLYDE Tranexamic Acid 1,000 mg/ (Sodium Chloride) 110 mls @ 660 mls/hr IV ONETIME PRN PRN Reason: Bleeding Lactated Ringer's (Ringers, Lactated) 1,000 mls @ 500 mls/hr IV BOLUS CLYDE Last Admin: 10/03/20 07:47 Dose: 999 mls/hr Documented by: [email or web address] Infusion: 10/03/20 07:10 Dose: 999 mls/hr Documented by: [email or web address] Infusion: 10/03/20 06:49 Dose: 999 mls/hr Documented by: Admin: 10/03/20 05:30 Dose: 500 mls/hr Documented by: PATRICIA Lidocaine HCl (Xylocaine 1%) 50 ml INJECT ONETIME PRN PRN Reason: Laceration repair Methylergonovine Maleate (Methergine) 0.2 mg IM ASDIRECTED PRN PRN Reason: Post Hemorrhage Misoprostol (Cytotec) 200 mcg PO ONETIME PRN PRN Reason: Post Hemorrhage Nalbuphine HCl (Nubain) 10 mg IVPUSH Q1H PRN PRN Reason: Pain (severe 7-10) Sodium Chloride (Saline Flush) 10 ml FLUSH ASDIRECTED PRN PRN Reason: Keep Vein Open Sodium Chloride (Saline Flush) 2.5 ml FLUSH ASDIRECTED PRN PRN Reason: Keep Vein Open Sodium Chloride (Normal Saline) 10 ml IV ASDIRECTED PRN PRN Reason: IV Use Sterile Water (Sterile Water For Irrigation) 1,000 ml IRR ASDIRECTED PRN PRN Reason: delivery Assessment/Plan Comment:: Admit A: presenting to L&D at 39 2/7 weeks (JANES: 10/08/20 by early ultrasound) for repeat delivery by Dr. Escobedo. O-, Rubella immune, GBS negative. P: Repeat delivery; Rhogam as indicated within 72 hours of .
[2020-10-03] MEDS ORDERED: Bisacodyl 10 MG Supp RECTAL PRN (08:47)
[2020-10-03] MEDS ORDERED: Witch Hazel Medicated Pads 40/Jar TOP PRN (08:47)
[2020-10-03] MEDS ORDERED: Lanolin 100% Cream 7 GM Tube TOP PRN (08:47)
[2020-10-03] MEDS ORDERED: Benzocaine/Menthol 20%-0.5% Spray 78 GM Cannister TOP PRN (08:47)
[2020-10-03] MEDS ORDERED: oxyCODONE 5 MG Tab PO PRN (08:47)
[2020-10-03] MEDS ORDERED: Acetaminophen 500 MG Tab PO PRN ×2 (08:47)
[2020-10-03] MEDS ORDERED: Ibuprofen 400 MG Tab PO PRN (08:47)
--- NOTE | 2020-10-03 08:50 | PCM.OPNOTE ---
- General Post-Op/Procedure Note Date of Surgery/Procedure: 10/03/20 Operative Procedure(s): Repeat C/section. Pre Op Diagnosis: [id number] previous C/section. Post-Op Diagnosis: Same Anesthesia Technique: Spinal Primary Surgeon: Jaylan Escobedo Medical Assistant Secretary: Lilia Bai EBL in mLs: 650 Complications: None Condition: Good
[2020-10-03] MEDS ORDERED: diphenhydrAMINE 50 MG/ML SDV IVPUSH PRN (09:45)
[2020-10-03] MEDS ORDERED: Ondansetron 4 MG/2 ML SDV IVPUSH PRN (09:45)
[2020-10-03] MEDS ORDERED: Acetaminophen/oxyCODONE 325-5 MG Tab PO PRN (09:45)
[2020-10-03] MEDS ORDERED: fentaNYL 100 MCG/2 ML SDV IVPUSH PRN (09:45)
[2020-10-03] MEDS ORDERED: Naloxone 0.4 MG/ML Syringe IVPUSH PRN (09:45)
--- NOTE | 2020-10-03 09:56 | PCM.POSTAN ---
POST ANESTHESIA ASSESSMENT - MENTAL STATUS Mental Status: Alert, Oriented - RESPIRATORY Respiratory Status: Respiratory Rate WNL, Airway Patent, O2 Saturation Stable - CARDIOVASCULAR CV Status: Pulse Rate WNL, Blood Pressure Stable - GASTROINTESTINAL GI Status: No Symptoms Free Text/Narrative:: Denies nausea/ vomiting, eating ice chips - PAIN Pain Score: 2 Free Text/Narrative:: Reports adequate pain control - POST OP HYDRATION Hydration Status: Adequate & Stable - OBSERVATIONS Free Text/Narrative:: Spinal regressing. T11.
[2020-10-03] MEDS: Ketorolac 30 MG/ML SDV IVPUSH PRN ×3 (10:05→22:36)
--- NOTE | 2020-10-03 14:27 | OR ---
SURGEON: Jaylan Escobedo MD DATE OF PROCEDURE: 10/03/2020 PREOPERATIVE DIAGNOSES: Intrauterine at 39 weeks, previous section. POSTOPERATIVE DIAGNOSES: Intrauterine at 39 weeks, previous section. OPERATION PERFORMED: Repeat low transverse section. PRIMARY SURGEON: Jaylan Escobedo MD SALES ASSISTANTS AND SALESPERSONS: Lilia Bai CNM ANESTHESIA: Spinal. ESTIMATED BLOOD LOSS: 650 mL. COMPLICATIONS: None. FINDINGS: A viable female fetus. score reported to be 8 and 9. The weight is not available at the time of the dictation. INDICATIONS FOR SURGERY: This patient is 39 weeks. She had previous section. She is admitted for elective repeat section. PROCEDURE IN DETAIL: The patient was brought to the OR, properly identified. Desai catheter in the bladder, and after adequate level of spinal anesthesia, the patient was prepped and draped in sterile fashion as usual. A time-out was taken and then low transverse Pfannenstiel skin incision, Claudia fascia and rectus fascia were opened in direction of the incision. The two recti muscles were and peritoneal cavity was entered. Bladder flap was raised in the usual manner, pushing the bladder away from the lower uterine segment, and then low transverse uterine incision was done and extended manually with the hand. Fetus was in a vertex position, delivered without any problem. Cried immediately. score later on reported to be 8 and 9. Weight is not available. The placenta delivered spontaneous, complete, and intact. Repair of lower uterine segment was done with 2-0 Vicryl continuous interlocking in two layers. Reperitonealization done with 3-0 Vicryl continuous and then the peritoneal cavity evacuated completely from all blood and blood clot and closed with 3-0 Vicryl continuous. The rectus fascia was closed with #1 PDS double strand continuous, Claudia fascia with 3-0 Vicryl continuous. The skin then closed with 3-0 Stratafix in a subcuticular fashion with Dermabond. Instrument and sponge count was correct. The patient tolerated the procedure well, went to recovery room in stable general condition. MARISOL / LG /[id number]
--- NOTE | 2020-10-03 21:09 | PCM48HPAN ---
Post Anesthesia Note - EVALUATION WITHIN 48HRS OF ANESTHETIC Vital Signs in Normal Range: Yes Patient Participated in Evaluation: Yes Respiratory Function Stable: Yes Airway Patent: Yes Cardiovascular Function Stable: Yes Hydration Status Stable: Yes Pain Control Satisfactory: Yes Nausea and Vomiting Control Satisfactory: Yes Mental Status Recovered: Yes Vital Signs: Last Vital Signs Temp 36.9 C 10/03/20 20:00 Pulse 76 10/03/20 20:00 Resp 16 10/03/20 20:00 BP 116/62 10/03/20 20:00 Pulse Ox 98 10/03/20 20:00
[2020-10-03] MEDS: Docusate Sodium 100 MG Cap PO PRN (22:36)
[2020-10-04] MEDS: Ketorolac 30 MG/ML SDV IVPUSH PRN (04:56)
[2020-10-04] MEDS: Docusate Sodium 100 MG Cap PO PRN ×2 (09:18→21:26)
--- NOTE | 2020-10-04 09:59 | PCM.SURGPN ---
- General Info Date of Service: 10/04/20 POD#: 1 Functional Status: Reports: Pain Controlled - Review of Systems General: Reports: No Symptoms HEENT: Reports: No Symptoms Pulmonary: Reports: No Symptoms Cardiovascular: Reports: No Symptoms Gastrointestinal: Reports: No Symptoms Genitourinary: Reports: No Symptoms Musculoskeletal: Reports: No Symptoms Skin: Reports: No Symptoms Neurological: Reports: No Symptoms Psychiatric: Reports: No Symptoms - Patient Data Vitals - Most Recent: Last Vital Signs Temp 36.6 C 10/04/20 08:15 Pulse 84 10/04/20 08:15 Resp 18 10/04/20 08:15 BP 103/51 L 10/04/20 08:15 Pulse Ox 94 L 10/04/20 08:15 Weight - Most Recent: 78.471 kg I&O - Last 24 Hours: Intake & Output 10/03/20 10/04/20 10/04/20 22:59 06:59 14:59 Output Total 1500 Balance -1500 Lab Results Last 24 Hrs: Laboratory Results - last 24 hr 10/04/20 Range/Units 06:35 Hgb 9.6 L (12.0-16.0) g/dL Hct 30.7 L (36.0-46.0) % Med Orders - Current: Current Medications Acetaminophen (Tylenol Extra Strength) 500 mg PO Q4H PRN PRN Reason: Pain Acetaminophen (Tylenol Extra Strength) 1,000 mg PO Q4H PRN PRN Reason: Pain Benzocaine/Menthol (Dermoplast Pain Relief 20%-0.5% [place]) 78 gm TOP ASDIRECTED PRN PRN Reason: Perineal Comfort Measure Bisacodyl (Dulcolax) 10 mg RECTAL ONETIME PRN PRN Reason: Constipation Butorphanol Tartrate (Stadol) 1 mg IVPUSH Q1H PRN PRN Reason: Pain Carboprost Tromethamine (Hemabate Ds) 250 mcg IM ASDIRECTED PRN PRN Reason: Post Hemorrhage Docusate Sodium (Colace) 100 mg PO BID PRN PRN Reason: Constipation Last Admin: 10/04/20 09:18 Dose: 100 mg Documented by: Emollient Ointment (Lansinoh Hpa) 0 gm TOP ASDIRECTED PRN PRN Reason: Sore Nipples Fentanyl (Sublimaze) 50 mcg IVPUSH Q1H PRN PRN Reason: Pain (severe 7-10) Oxytocin/Sodium Chloride (Oxytocin 30 Unit/500 Ml-Ns) 30 unit in 500 mls @ 250 mls/hr IV TITRATE [facility] Lactated Ringer's (Ringers, Lactated) 1,000 mls @ 150 mls/hr IV ASDIRECTED CLYDE Last Admin: 10/03/20 10:11 Dose: 150 mls/hr Documented by: Oxytocin/Sodium Chloride (Oxytocin 30 Unit/500 Ml-Ns) 30 unit in 500 mls @ 999 mls/hr IV TITRATE [facility] Tranexamic Acid 1,000 mg/ (Sodium Chloride) 110 mls @ 660 mls/hr IV ONETIME PRN PRN Reason: Bleeding Lactated Ringer's (Ringers, Lactated) 1,000 mls @ 500 mls/hr IV BOLUS [facility] Last Admin: 10/03/20 07:47 Dose: 999 mls/hr Documented by: Ibuprofen (Motrin) 400 mg PO Q4H PRN PRN Reason: Pain Ibuprofen (Motrin) 800 mg PO Q6H PRN PRN Reason: Pain Ketorolac Tromethamine (Toradol) 30 mg IVPUSH ONETIME ONE Stop: 10/04/20 11:01 Lidocaine HCl (Xylocaine 1%) 50 ml INJECT ONETIME PRN PRN Reason: Laceration repair Methylergonovine Maleate (Methergine) 0.2 mg IM ASDIRECTED PRN PRN Reason: Post Hemorrhage Misoprostol (Cytotec) 200 mcg PO ONETIME PRN PRN Reason: Post Hemorrhage Nalbuphine HCl (Nubain) 10 mg IVPUSH Q1H PRN PRN Reason: Pain (severe 7-10) Nalbuphine HCl (Nubain) 5 mg IVPUSH ASDIRECTED PRN PRN Reason: Itching Last Admin: 10/03/20 13:27 Dose: 5 mg Documented by: Ondansetron HCl (Zofran) 4 mg IVPUSH Q6H PRN PRN Reason: Nausea Oxycodone HCl (Oxycodone) 5 mg PO Q2H PRN PRN Reason: Pain Oxycodone/Acetaminophen (Percocet 325-5 Mg) 2 tab PO Q6H PRN PRN Reason: Pain (moderate 4-6) Sodium Chloride (Saline Flush) 10 ml FLUSH ASDIRECTED PRN PRN Reason: Keep Vein Open Sodium Chloride (Saline Flush) 2.5 ml FLUSH ASDIRECTED PRN PRN Reason: Keep Vein Open Sodium Chloride (Normal Saline) 10 ml IV ASDIRECTED PRN PRN Reason: IV Use Sterile Water (Sterile Water For Irrigation) 1,000 ml IRR ASDIRECTED PRN PRN Reason: delivery [place] (Tucks) 1 pad TOP ASDIRECTED PRN PRN Reason: comfort care Discontinued Medications Cefazolin Sodium (Ancef) Confirm Administered Dose 2 gm .ROUTE .STK-MED ONE Stop: 10/03/20 07:29 Citric Acid/Sodium Citrate (Bicitra Solution) 30 ml PO ONETIME ONE Stop: 10/03/20 05:11 Last Admin: 10/03/20 10:10 Dose: Not Given Documented by: Dexamethasone (Dexamethasone) Confirm Administered Dose 20 mg .ROUTE .STK-MED ONE Stop: 10/03/20 07:23 Diphenhydramine HCl (Benadryl) 25 mg IVPUSH Q4H PRN PRN Reason: Itching Stop: 10/04/20 09:45 Fentanyl (Sublimaze) Confirm Administered Dose 100 mcg .ROUTE .STK-MED ONE Stop: 10/03/20 07:26 Cefazolin Sodium/Dextrose 2 gm (/ Premix) 50 mls @ 100 mls/hr IV ONETIME ONE Stop: 10/03/20 05:39 Last Admin: 10/03/20 10:10 Dose: Not Given Documented by: Ketorolac Tromethamine (Toradol) 30 mg IVPUSH Q6H PRN PRN Reason: Pain (moderate 4-6) Last Admin: 10/04/20 04:56 Dose: 30 mg Documented by: Morphine Sulfate (Duramorph Pf) Confirm Administered Dose 10 mg .ROUTE .STK-MED ONE Stop: 10/03/20 07:27 Naloxone HCl (Narcan) 0.1 mg IVPUSH ONETIME PRN PRN Reason: Respiratory Depression Stop: 10/04/20 09:45 Octyl Cyanoacrylate (Dermabond Advance) Confirm Administered Dose 1 applic .ROUTE .STK-MED ONE Stop: 10/03/20 07:22 Last Admin: 10/03/20 10:11 Dose: Not Given Documented by: Ondansetron HCl (Zofran) Confirm Administered Dose 4 mg .ROUTE .STK-MED ONE Stop: 10/03/20 07:23 Oxytocin (Pitocin) Confirm Administered Dose 20 unit .ROUTE .STK-MED ONE Stop: 10/03/20 07:23 - Exam Wound/Incisions: Healing Well General: Alert, Oriented HEENT: Pupils Equal Neck: Supple Lungs: Clear to Auscultation, Normal Respiratory Effort Cardiovascular: Regular Rate, Regular Rhythm GI/Abdominal Exam: Normal Bowel Sounds, Soft, Non-Tender, No Organomegaly, No Distention, No Abnormal Bruit, No Mass, Pelvis Stable Extremities: Normal Inspection, Normal Range of Motion, Non-Tender, No Pedal Edema, Normal Capillary Refill Skin: Warm, Dry, Intact Neurological: No New Focal Deficit Psy/Mental Status: Alert, Normal Affect, Normal Mood Sepsis Event Note - Evaluation Sepsis Screening Result: No Definite Risk - Focused Exam Vital Signs: Vital Signs Temp Pulse Resp BP Pulse Ox 10/04/20 08:15 36.6 C 84 18 103/51 L 94 L 10/04/20 07:00 72 17 93 L 10/04/20 06:00 76 17 92 L 10/04/20 05:00 79 17 98 10/04/20 04:00 36.7 C 77 18 111/55 L 97 10/04/20 03:00 80 17 97 10/04/20 02:00 81 17 96 10/04/20 01:00 78 16 95 10/04/20 00:08 82 18 94 L 10/03/20 23:00 36.9 C 70 20 108/53 L 94 L 10/03/20 22:00 72 18 98 - Problem List Review Problem List Initiated/Reviewed/Updated: Yes - My Orders Last 24 Hours: Active Orders 24 hr Category Date Time Status Oxygen Therapy [RC] PER UNIT ROUTINE Care 10/03/20 09:45 Active Vital Signs [RC] PER UNIT ROUTINE Care 10/03/20 09:45 Active Regular Diet [DIET] Diet 10/03/20 Dinner Active Acetaminophen/oxyCODONE [Percocet 325-5 MG] Med 10/03/20 09:45 Active 2 tab PO Q6H PRN Ketorolac [Toradol] Med 10/04/20 11:00 Once 30 mg IVPUSH ONETIME ONE Nalbuphine [Nubain] Med 10/03/20 09:45 Active 5 mg IVPUSH ASDIRECTED PRN Ondansetron [Zofran] Med 10/03/20 09:45 Active 4 mg IVPUSH Q6H PRN fentaNYL [Sublimaze] Med 10/03/20 09:45 Active 50 mcg IVPUSH Q1H PRN Medication Orders Acetaminophen (Tylenol Extra Strength) 500 mg PO Q4H PRN PRN Reason: Pain Acetaminophen (Tylenol Extra Strength) 1,000 mg PO Q4H PRN PRN Reason: Pain Benzocaine/Menthol (Dermoplast Pain Relief 20%-0.5% [place]) 78 gm TOP ASDIRECTED PRN PRN Reason: Perineal Comfort Measure Bisacodyl (Dulcolax) 10 mg RECTAL ONETIME PRN PRN Reason: Constipation Butorphanol Tartrate (Stadol) 1 mg IVPUSH Q1H PRN PRN Reason: Pain Carboprost Tromethamine (Hemabate Ds) 250 mcg IM ASDIRECTED PRN PRN Reason: Post Hemorrhage Docusate Sodium (Colace) 100 mg PO BID PRN PRN Reason: Constipation Last Admin: 10/04/20 09:18 Dose: 100 mg Documented by: [id number] Admin: 10/03/20 22:36 Dose: 100 mg Documented by: JERRY Emollient Ointment (Lansinoh Hpa) 0 gm TOP ASDIRECTED PRN PRN Reason: Sore Nipples Fentanyl (Sublimaze) 50 mcg IVPUSH Q1H PRN PRN Reason: Pain (severe 7-10) Oxytocin/Sodium Chloride (Oxytocin 30 Unit/500 Ml-Ns) 30 unit in 500 mls @ 250 mls/hr IV TITRATE [facility] Lactated Ringer's (Ringers, Lactated) 1,000 mls @ 150 mls/hr IV ASDIRECTED CLYDE Last Admin: 10/03/20 10:11 Dose: 150 mls/hr Documented by: REBECCA Oxytocin/Sodium Chloride (Oxytocin 30 Unit/500 Ml-Ns) 30 unit in 500 mls @ 999 mls/hr IV TITRATE [facility] Tranexamic Acid 1,000 mg/ (Sodium Chloride) 110 mls @ 660 mls/hr IV ONETIME PRN PRN Reason: Bleeding Lactated Ringer's (Ringers, Lactated) 1,000 mls @ 500 mls/hr IV BOLUS [facility] Last Admin: 10/03/20 07:47 Dose: 999 mls/hr Documented by: Infusion: 10/03/20 07:10 Dose: 999 mls/hr Documented by: Infusion: 10/03/20 06:49 Dose: 999 mls/hr Documented by: Admin: 10/03/20 05:30 Dose: 500 mls/hr Documented by: PATRICIA Ibuprofen (Motrin) 400 mg PO Q4H PRN PRN Reason: Pain Ibuprofen (Motrin) 800 mg PO Q6H PRN PRN Reason: Pain Ketorolac Tromethamine (Toradol) 30 mg IVPUSH ONETIME ONE Stop: 10/04/20 11:01 Lidocaine HCl (Xylocaine 1%) 50 ml INJECT ONETIME PRN PRN Reason: Laceration repair Methylergonovine Maleate (Methergine) 0.2 mg IM ASDIRECTED PRN PRN Reason: Post Hemorrhage Misoprostol (Cytotec) 200 mcg PO ONETIME PRN PRN Reason: Post Hemorrhage Nalbuphine HCl (Nubain) 10 mg IVPUSH Q1H PRN PRN Reason: Pain (severe 7-10) Nalbuphine HCl (Nubain) 5 mg IVPUSH ASDIRECTED PRN PRN Reason: Itching Last Admin: 10/03/20 13:27 Dose: 5 mg Documented by: REBECCA Ondansetron HCl (Zofran) 4 mg IVPUSH Q6H PRN PRN Reason: Nausea Oxycodone HCl (Oxycodone) 5 mg PO Q2H PRN PRN Reason: Pain Oxycodone/Acetaminophen (Percocet 325-5 Mg) 2 tab PO Q6H PRN PRN Reason: Pain (moderate 4-6) Sodium Chloride (Saline Flush) 10 ml FLUSH ASDIRECTED PRN PRN Reason: Keep Vein Open Sodium Chloride (Saline Flush) 2.5 ml FLUSH ASDIRECTED PRN PRN Reason: Keep Vein Open Sodium Chloride (Normal Saline) 10 ml IV ASDIRECTED PRN PRN Reason: IV Use Sterile Water (Sterile Water For Irrigation) 1,000 ml IRR ASDIRECTED PRN PRN Reason: delivery [place] (Tucks) 1 pad TOP ASDIRECTED PRN PRN Reason: comfort care - Assessment Assessment (Free Text/Narrative):: This was section postoperative day #1 the patient is doing well incision is clean dry she is voiding she is on regular diet and she is passing gas
[2020-10-04] MEDS ORDERED: Ketorolac 30 MG/ML SDV IVPUSH ONE (11:00)
[2020-10-04] MEDS ORDERED: Acetaminophen/oxyCODONE 325-5 MG Tab PO PRN ×2 (16:18→16:20)
[2020-10-04] MEDS: Ibuprofen 800 MG Tab PO PRN (21:26)
[2020-10-05] MEDS: Ibuprofen 800 MG Tab PO PRN (06:05)
--- NOTE | 2020-10-05 10:24 | PCM.PNPP ---
- General Info Date of Service: 10/05/20 Functional Status: Reports: Pain Controlled - Review of Systems General: Reports: No Symptoms HEENT: Reports: No Symptoms Pulmonary: Reports: No Symptoms Cardiovascular: Reports: No Symptoms Gastrointestinal: Reports: No Symptoms Genitourinary: Reports: No Symptoms Musculoskeletal: Reports: No Symptoms Skin: Reports: No Symptoms Neurological: Reports: No Symptoms Psychiatric: Reports: No Symptoms - General Info Date of Service: 10/05/20 - Patient Data Vital Signs - Most Recent: Last Vital Signs Temp 36.4 C 10/05/20 08:41 Pulse 93 10/05/20 08:41 Resp 16 10/05/20 08:41 BP 116/75 10/05/20 08:41 Pulse Ox 100 10/05/20 08:41 Weight - Most Recent: 78.471 kg Lab Results - Last 24 Hours: Laboratory Results - last 24 hr 10/03/20 Range/Units 05:45 RPR Non-Reac (Non-Reac) Med Orders - Current: Current Medications Acetaminophen (Tylenol Extra Strength) 500 mg PO Q4H PRN PRN Reason: Pain Acetaminophen (Tylenol Extra Strength) 1,000 mg PO Q4H PRN PRN Reason: Pain Benzocaine/Menthol (Dermoplast Pain Relief 20%-0.5% [place]) 78 gm TOP ASDIRECTED PRN PRN Reason: Perineal Comfort Measure Bisacodyl (Dulcolax) 10 mg RECTAL ONETIME PRN PRN Reason: Constipation Butorphanol Tartrate (Stadol) 1 mg IVPUSH Q1H PRN PRN Reason: Pain Carboprost Tromethamine (Hemabate Ds) 250 mcg IM ASDIRECTED PRN PRN Reason: Post Hemorrhage Docusate Sodium (Colace) 100 mg PO BID PRN PRN Reason: Constipation Last Admin: 10/04/20 21:26 Dose: 100 mg Documented by: Emollient Ointment (Lansinoh Hpa) 0 gm TOP ASDIRECTED PRN PRN Reason: Sore Nipples Fentanyl (Sublimaze) 50 mcg IVPUSH Q1H PRN PRN Reason: Pain (severe 7-10) Oxytocin/Sodium Chloride (Oxytocin 30 Unit/500 Ml-Ns) 30 unit in 500 mls @ 250 mls/hr IV TITRATE [facility] Lactated Ringer's (Ringers, Lactated) 1,000 mls @ 150 mls/hr IV ASDIRECTED CLYDE Last Admin: 10/03/20 10:11 Dose: 150 mls/hr Documented by: Oxytocin/Sodium Chloride (Oxytocin 30 Unit/500 Ml-Ns) 30 unit in 500 mls @ 999 mls/hr IV TITRATE [facility] Tranexamic Acid 1,000 mg/ (Sodium Chloride) 110 mls @ 660 mls/hr IV ONETIME PRN PRN Reason: Bleeding Lactated Ringer's (Ringers, Lactated) 1,000 mls @ 500 mls/hr IV BOLUS [facility] Last Admin: 10/03/20 07:47 Dose: 999 mls/hr Documented by: Ibuprofen (Motrin) 400 mg PO Q4H PRN PRN Reason: Pain Ibuprofen (Motrin) 800 mg PO Q6H PRN PRN Reason: Pain Last Admin: 10/05/20 06:05 Dose: 800 mg Documented by: Lidocaine HCl (Xylocaine 1%) 50 ml INJECT ONETIME PRN PRN Reason: Laceration repair Methylergonovine Maleate (Methergine) 0.2 mg IM ASDIRECTED PRN PRN Reason: Post Hemorrhage Misoprostol (Cytotec) 200 mcg PO ONETIME PRN PRN Reason: Post Hemorrhage Nalbuphine HCl (Nubain) 10 mg IVPUSH Q1H PRN PRN Reason: Pain (severe 7-10) Nalbuphine HCl (Nubain) 5 mg IVPUSH ASDIRECTED PRN PRN Reason: Itching Last Admin: 10/03/20 13:27 Dose: 5 mg Documented by: Ondansetron HCl (Zofran) 4 mg IVPUSH Q6H PRN PRN Reason: Nausea Oxycodone HCl (Oxycodone) 5 mg PO Q2H PRN PRN Reason: Pain Oxycodone/Acetaminophen (Percocet 325-5 Mg) 1 tab PO Q4H PRN PRN Reason: Pain (moderate 4-6) Last Admin: 10/04/20 16:30 Dose: 1 tab Documented by: Oxycodone/Acetaminophen (Percocet 325-5 Mg) 2 tab PO Q4H PRN PRN Reason: Pain (severe 7-10) Last Admin: 10/05/20 03:29 Dose: 2 tab Documented by: Sodium Chloride (Saline Flush) 10 ml FLUSH ASDIRECTED PRN PRN Reason: Keep Vein Open Sodium Chloride (Saline Flush) 2.5 ml FLUSH ASDIRECTED PRN PRN Reason: Keep Vein Open Sodium Chloride (Normal Saline) 10 ml IV ASDIRECTED PRN PRN Reason: IV Use Sterile Water (Sterile Water For Irrigation) 1,000 ml IRR ASDIRECTED PRN PRN Reason: delivery [place] (Tucks) 1 pad TOP ASDIRECTED PRN PRN Reason: comfort care Discontinued Medications Cefazolin Sodium (Ancef) Confirm Administered Dose 2 gm .ROUTE .STK-MED ONE Stop: 10/03/20 07:29 Citric Acid/Sodium Citrate (Bicitra Solution) 30 ml PO ONETIME ONE Stop: 10/03/20 05:11 Last Admin: 10/03/20 10:10 Dose: Not Given Documented by: Dexamethasone (Dexamethasone) Confirm Administered Dose 20 mg .ROUTE .STK-MED ONE Stop: 10/03/20 07:23 Diphenhydramine HCl (Benadryl) 25 mg IVPUSH Q4H PRN PRN Reason: Itching Stop: 10/04/20 09:45 Fentanyl (Sublimaze) Confirm Administered Dose 100 mcg .ROUTE .STK-MED ONE Stop: 10/03/20 07:26 Cefazolin Sodium/Dextrose 2 gm (/ Premix) 50 mls @ 100 mls/hr IV ONETIME ONE Stop: 10/03/20 05:39 Last Admin: 10/03/20 10:10 Dose: Not Given Documented by: Ketorolac Tromethamine (Toradol) 30 mg IVPUSH Q6H PRN PRN Reason: Pain (moderate 4-6) Last Admin: 10/04/20 04:56 Dose: 30 mg Documented by: Ketorolac Tromethamine (Toradol) 30 mg IVPUSH ONETIME ONE Stop: 10/04/20 11:01 Last Admin: 10/04/20 11:30 Dose: 30 mg Documented by: Morphine Sulfate (Duramorph Pf) Confirm Administered Dose 10 mg .ROUTE .STK-MED ONE Stop: 10/03/20 07:27 Naloxone HCl (Narcan) 0.1 mg IVPUSH ONETIME PRN PRN Reason: Respiratory Depression Stop: 10/04/20 09:45 Octyl Cyanoacrylate (Dermabond Advance) Confirm Administered Dose 1 applic .ROUTE .STK-MED ONE Stop: 10/03/20 07:22 Last Admin: 10/03/20 10:11 Dose: Not Given Documented by: Ondansetron HCl (Zofran) Confirm Administered Dose 4 mg .ROUTE .STK-MED ONE Stop: 10/03/20 07:23 Oxytocin (Pitocin) Confirm Administered Dose 20 unit .ROUTE .STK-MED ONE Stop: 10/03/20 07:23 - Interaction Infant Disposition, : in Room with Family Infant Interaction: Holding Feeding: Attempted ; Nursed Fair/Poor Support Person: - Recovery Exam Fundal Tone: Firm Fundal Level: 1 Fingerbreadths Below Umbilicus Fundal Placement: Midline Lochia Amount: Scant Lochia Color: Rubra/Red Perineum Description: Intact, Minimal Bruising/Swelling Episiotomy/Laceration: None Bladder Status: Voiding Urinary Elimination: Voided - Exam General: Alert, Oriented HEENT: Pupils Equal Neck: Supple Lungs: Clear to Auscultation, Normal Respiratory Effort Cardiovascular: Regular Rate, Regular Rhythm GI/Abdominal Exam: Normal Bowel Sounds, Soft, Non-Tender, No Organomegaly, No Distention, No Abnormal Bruit, No Mass, Pelvis Stable Extremities: Normal Inspection, Normal Range of Motion, Non-Tender, No Pedal Edema, Normal Capillary Refill Skin: Warm, Dry, Intact Wound/Incisions: Healing Well Neurological: No New Focal Deficit Psy/Mental Status: Alert, Normal Affect, Normal Mood - Problem List Review Problem List Initiated/Reviewed/Updated: Yes - My Orders Last 24 Hours: My Active Orders 10/04/20 16:18 Acetaminophen/oxyCODONE [Percocet 325-5 MG] 1 tab PO Q4H PRN 10/04/20 16:20 Acetaminophen/oxyCODONE [Percocet 325-5 MG] 2 tab PO Q4H PRN - Assessment Assessment:: Doing well will send home today. - Plan Plan:: Admit A: presenting to L&D at 39 2/7 weeks (JANES: 10/08/20 by early ultrasound) for repeat delivery by Dr. Escobedo. O-, Rubella immune, GBS negative. P: Repeat delivery; Rhogam as indicated within 72 hours of .
== END 2020-10-05 12:10 | disposition home or self-care (01) | DRG 788 ==
LOC: MW.OB 05:07
PROVIDERS: ADMIT Obstetrics & Gynecology; ATTEND Obstetrics & Gynecology
PROC: 10D00Z1 Extraction of Products of Conception, Low, Open Approach (ICD-10-PCS; principal; 2020-10-03)
DX: O34.211 Maternal care for low transverse scar from previous cesarean delivery (principal); Z3A.39 39 weeks gestation of pregnancy; Z37.0 Single live birth
CPT/HCPCS: 36415; 59025; 85014; 85018; 85027; 86592; 86850; 86900; 86901; A9270-GY; J0690; J1100; J1885; J2270; J2300; J2405; J2590; J3010; J7120

== ENCOUNTER 2020-10-17 19:00 | Emergency (ER) | payer OTHER ==
--- NOTE | 2020-10-17 19:30 | EDM.PDOC ---
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 She had a here on the fourth of this month and follows up with Dr. Escobedo. It only does she has some bleeding but she feels a little lightheaded when she stands up. The baby is doing well and she is breast- feeding. The patient has some incisional pain as well. Worried that she might have an infection. Review of systems: As per history of present illness and below otherwise all systems reviewed and negative. Past medical history: As per history of present illness and as reviewed below otherwise noncontributory. Surgical history: As per history of present illness and as reviewed below otherwise noncontributory. Social history: No reported history of drug or alcohol abuse. Family history: As per history of present illness and as reviewed below otherwise noncontributory. Physical exam: Constitutional - well developed, well-nourished and in no acute distress HEENT - normocephalic, no evidence of trauma - external nose and mouth normal - no mass in neck and no JVD - mucosae moist EYES - full EOM, PERRL, no icterus - no evidence of inflammation, injection, or drainage Respiratory - no respiratory distress, equal bilateral expansion GI - abdomen soft without distension or organomegaly - normal bowel sounds - no guard or rebound. There is a wound L. Pfannenstiel type in the low anterior abdomen and it is not tender, not swollen, not draining pus. Where she has scrubbed it with soap and water and placed a small towel there is a scant amount of discoloration that is blood colored. The edges of the wound and the epidermis only are somewhat everted but there is no full-thickness dehiscence. Musculoskeletal no gross deformity of long bones or joints - no tenderness, swelling or edema Neurologic - Alert and oriented times four - CN II-XII grossly intact - motor sensory and coordination symmetrically normal Psychiatric - appropriate mood and affect with normal thought content Hematologic - No petechiae or purpura - mucosa appropriate color and sclera not pale - normal nail bed color and refill Integument - no rash or evidence of trauma - normal turgor Diagnostics: [] Pharyngeal includes anemia, hypoglycemia, impending wound dehiscence, superficial infection. 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 Therapeutics: [] Impression: [] Plan: [] Definitive disposition and diagnosis as appropriate pending reevaluation and review of above. 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: Musculoskeletal History: Reports: None Neurological History: Reports: None Psychiatric History: Reports: None Endocrine/Metabolic History: Reports: None - Infectious Disease History Infectious Disease History: Reports: None - Past Surgical History Head Surgeries/Procedures: Reports: None Female Surgical History: Reports: Section Social & Family History - Family History Family Medical History: No Pertinent Family History - Caffeine Use Caffeine Use: Reports: None - Recreational Drug Use Recreational Drug Use: No ED ROS GENERAL - Review of Systems Review Of Systems: Comprehensive ROS is negative, except as noted in HPI. ED EXAM, GENERAL - Physical Exam Exam: See Below Free Text/Narrative:: My physical exam is in the HPI Course - Vital Signs Last Recorded V/S: Last Vital Signs Temp 36.6 C 10/17/20 19:19 Pulse 84 10/17/20 19:19 Resp 16 10/17/20 19:19 BP 112/67 10/17/20 19:19 Pulse Ox 98 10/17/20 19:19 - Orders/Labs/Meds Labs: Laboratory Tests 10/17/20 10/17/20 Range/Units 20:25 20:25 WBC 8.34 (4.0-11.0) K/uL RBC 5.43 (4.30-5.90) M/uL Hgb 12.6 (12.0-16.0) g/dL Hct 39.3 (36.0-46.0) % MCV 72.4 L (80.0-98.0) fL MCH 23.2 L (27.0-32.0) pg MCHC 32.1 (31.0-37.0) g/dL RDW Std Deviation 47.9 (28.0-62.0) fl RDW Coeff of Amy 18 H (11.0-15.0) % Plt Count 241 (150-400) K/uL MPV 11.30 (7.40-12.00) fL Neut % (Auto) 63.9 (48.0-80.0) % Lymph % (Auto) 25.7 (16.0-40.0) % [place] % (Auto) 5.5 (0.0-15.0) % Eos % (Auto) 4.7 (0.0-7.0) % Baso % (Auto) 0.2 (0.0-1.5) % Neut # (Auto) 5.3 (1.4-5.7) K/uL Lymph # (Auto) 2.1 (0.6-2.4) K/uL [place] # (Auto) 0.5 (0.0-0.8) K/uL Eos # (Auto) 0.4 (0.0-0.7) K/uL Baso # (Auto) 0.0 (0.0-0.1) K/uL Nucleated RBC % 0.0 /100WBC Nucleated RBCs # 0 K/uL Sodium 143 (136-145) mmol/L Potassium 4.3 (3.5-5.1) mmol/L Chloride 106 (98-107) mmol/L Carbon Dioxide 25.6 (21.0-32.0) mmol/L BUN 18 (7.0-18.0) mg/dL Creatinine 0.7 (0.6-1.0) mg/dL Est Cr Clr Drug Dosing 85.45 mL/min Estimated GFR (MDRD) > 60.0 ml/min Glucose 90 (74-106) mg/dL Calcium 8.1 L (8.5-10.1) mg/dL Total Bilirubin 0.1 L (0.2-1.0) mg/dL AST 20 (15-37) IU/L ALT 25 (14-63) IU/L Alkaline Phosphatase 177 H (46-116) U/L Total Protein 6.6 (6.4-8.2) g/dL Albumin 3.1 L (3.4-5.0) g/dL Globulin 3.5 (2.6-4.0) g/dL Albumin/Globulin Ratio 0.9 (0.9-1.6) Departure - Departure Time of Disposition: 21:01 Disposition: Home, Self-Care 01 Condition: Good Clinical Impression: Visit for wound check - Discharge Information Referrals: Jaylan Escobedo MD [Primary Care Provider] - Forms: ED Department Discharge Additional Instructions: Gentle when you clean the wound. Follow-up with Dr. Escobedo. Return if there is purulent drainage fever or significant systemic signs of illness. T the following information is given to patients seen in the emergency department who are being discharged to home. This information is to outline your options for follow-up care. We provide all patients seen in our emergency department with a follow-up referral. The need for follow-up, as well as the timing and circumstances, are variable depending upon the specifics of your emergency department visit. If you don't have a primary care physician on staff, we will provide you with a referral. We always advise you to contact your personal physician following an emergency department visit to inform them of the circumstance of the visit and for follow-up with them and/or the need for any referrals to a consulting specialist. The emergency department will also refer you to a specialist when appropriate. This referral assures that you have the opportunity for follow-up care with a specialist. All of these measure are taken in an effort to provide you with optimal care, which includes your follow-up. Under all circumstances we always encourage you to contact your private physician who remains a resource for coordinating your care. When calling for follow-up care, please make the office aware that this follow-up is from your recent emergency room visit. If for any reason you are refused follow-up, please contact the [facility] Emergency Department at and asked to speak to the emergency department charge nurse. Sepsis Event Note (ED) - Evaluation Sepsis Screening Result: No Definite Risk - Focused Exam Vital Signs: Vital Signs Temp Pulse Resp BP Pulse Ox 10/17/20 19:19 36.6 C 84 16 112/67 98
[2020-10-17 20:54] LABS: BLOOD UREA NITROGEN,BUN 18 mg/dL (7.0-18.0); CARBON DIOXIDE,CO2 25.6 mmol/L (21.0-32.0); CHLORIDE,CL 106 mmol/L (98-107); GLUCOSE RANDOM 90 mg/dL (74-106); POTASSIUM,K 4.3 mmol/L (3.5-5.1); SODIUM,NA 143 mmol/L (136-145)
== END 2020-10-17 21:08 | disposition home or self-care (01) ==
LOC: MW.ED 19:00
DX: O90.89 Other complications of the puerperium, not elsewhere classified (principal)
CPT/HCPCS: 36415; 80053; 85025; 99283

== ENCOUNTER 2021-03-12 16:32 | Emergency (ER) | payer OTHER ==
[2021-03-12] MEDS ORDERED: Sodium Chloride 0.9% 10 ML Syringe FLUSH PRN (16:58)
[2021-03-12] MEDS ORDERED: Sodium Chloride 0.9% 2.5 ML Syringe FLUSH PRN (16:58)
[2021-03-12 18:01] LABS: BLOOD UREA NITROGEN,BUN 15 mg/dL (7.0-18.0); CARBON DIOXIDE,CO2 26.3 mmol/L (21.0-32.0); CHLORIDE,CL 103 mmol/L (98-107); GLUCOSE RANDOM 84 mg/dL (74-106); LIPASE 112 U/L (73-393); POTASSIUM,K 4.3 mmol/L (3.5-5.1); SODIUM,NA 139 mmol/L (136-145)
--- NOTE | 2021-03-12 18:14 | EDM.PDOC ---
ED HPI GENERAL MEDICAL PROBLEM - General Chief Complaint: Abdominal Pain Stated Complaint: UPPER ABDOMINAL PAIN Time Seen by Provider: 03/12/21 16:57 Source of Information: Reports: Patient History Limitations: Reports: No Limitations - History of Present Illness INITIAL COMMENTS - FREE TEXT/NARRATIVE: HISTORY AND PHYSICAL: History of present illness: Patient is a 36-year-old female who presents emergency room today with concern of upper abdominal pain/"gallbladder attack ". Patient states that she has been having issues with her gallbladder and has been following with Dr. Gudino, general surgery. Patient states she has a surgery scheduled on 19 March/this month in order to get her gallbladder removed. Patient states that she has been having intermittent episodes of epigastric/right upper quadrant abdominal pain and states that she had this occur today again and thought that if she came to the emergency room, they may remove her gallbladder today. Patient states that her abdomen pain today is typical of her usual gallbladder attacks and states that it is sharp in nature and worse with eating and improved if she relaxes. Patient states that here in the emergency room, her pain is nearly almost gone. Patient denies any new or different symptoms from her usual gallbladder discomfort. Patient denies fever, chills, chest pain, shortness of breath, or cough. Denies headache, neck stiff ness, change in vision, syncope, or near syncope. Denies nausea, vomiting, diarrhea, constipation, or dysuria. Has not noted any blood in urine or stool. Patient has been eating and drinking appropriately. Review of systems: As per history of present illness and below otherwise all systems reviewed and negative. Past medical history: As per history of present illness and as reviewed below otherwise noncontributory. Surgical history: As per history of present illness and as reviewed below otherwise noncontributory. Social history: See social history for further information Family history: As per history of present illness and as reviewed below otherwise noncontributory. Physical exam: General: Patient is alert, oriented, and in no acute distress. Patient laying comfortably on exam table. Vitals stable and reviewed by me. HEENT: Atraumatic, normocephalic, pupils equal and reactive bilaterally, negative for conjunctival pallor or scleral icterus, mucous membranes moist, TMs normal bilaterally, throat clear, neck supple, nontender, trachea midline. No drooling or trismus noted. No meningeal signs. No hot potato voice noted. Lungs: Clear to auscultation, breath sounds equal bilaterally, chest nontender. Heart: S1S2, regular rate and rhythm without overt murmur Abdomen: Soft, nondistended, mild right upper quadrant tenderness without guarding. Negative Christy sign. Negative for rebound tenderness. Negative for masses or hepatosplenomegaly. Negative for costovertebral tenderness. Pelvis: Stable nontender. Genitourinary: Deferred. Rectal: Deferred. Skin: Intact, warm, dry. No lesions or rashes noted. Extremities: Atraumatic, negative for cords or calf pain. Neurovascular unremarkable. Neuro: Awake, alert, oriented. Cranial nerves II through XII unremarkable. Cerebellum unremarkable. Motor and sensory unremarkable throughout. Exam nonfocal. Notes: Patient is a 36-year-old female who presents emergency room today with concern of upper abdominal pain/"gallbladder attack "that she has been having off-and-on and is scheduled to have her gallbladder removed in 7 [address] from now by Dr. Gudino, general surgery. Upon arrival to the ED, patient is vitally stable and well-appearing on exam. She does have some mild right upper quadrant tenderness with negative Christy sign and states that her pain is nearly gone now that she is here in the emergency room. Will obtain basic lab work and reassess patient. CBC mild derangements are unremarkable. CMP shows a within normal limits total bili. AST within normal limits. ALT is mildly elevated at 70 and alk phos mildly elevated at 145. Otherwise CMP is unremarkable. hCG is negative. Urinalysis is clear of infection. Upon reevaluation of patient, she remains vitally stable and comfortable throughout stay in ED. She states that her pain is completely gone down without therapeutics and feels per her usual self. Strict return precautions thoroughly discussed with patient. Discussed importance for follow-up with her surgery/Dr. Gudino and her primary care provider. Voices understanding and is agreeable to plan of care. Denies any further questions or concerns at this time. Diagnostics: CBC, CMP, UA, serum hCG, lipase Therapeutics: I did offer Toradol but patient declines Prescription: None Impression: Abdominal pain, unspecified Plan: 1. You can alternate ibuprofen and Tylenol as directed for pain and discomfort. 2. Follow-up with your general surgeon and your primary care provider as discussed. Return to the ED as needed and as discussed. Definitive disposition and diagnosis as appropriate pending reevaluation and review of above. LUQ Pain Score (Numeric/FACES): 8 - Related Data Allergies Allergy/AdvReac Type Severity Reaction Status Date / Time No Known Allergies Allergy Verified 03/12/21 16:52 Home Meds: Home Meds . 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: Musculoskeletal History: Reports: None Neurological History: Reports: None Psychiatric History: Reports: None Endocrine/Metabolic History: Reports: None Hematologic History: Reports: None Immunologic History: Reports: None Oncologic (Cancer) History: Reports: None Dermatologic History: Reports: None - Infectious Disease History Infectious Disease History: Reports: None - Past Surgical History Head Surgeries/Procedures: Reports: None HEENT Surgical History: Reports: None Cardiovascular Surgical History: Reports: None Respiratory Surgical History: Reports: None GI Surgical History: Reports: None Female Surgical History: Reports: Section Endocrine Surgical History: Reports: None Neurological Surgical History: Reports: None Musculoskeletal Surgical History: Reports: None Oncologic Surgical History: Reports: None Dermatological Surgical History: Reports: None Social & Family History - Family History Family Medical History: No Pertinent Family History - Tobacco Use Tobacco Use Status *Q: Never Tobacco User Second Hand Smoke Exposure: No - Caffeine Use Caffeine Use: Reports: None - Recreational Drug Use Recreational Drug Use: No ED ROS GENERAL - Review of Systems Review Of Systems: Comprehensive ROS is negative, except as noted in HPI. ED EXAM, GENERAL - Physical Exam Exam: See Below (See dictation) Course - Vital Signs Last Recorded V/S: Last Vital Signs Temp 98.2 F 03/12/21 18:24 Pulse 84 03/12/21 18:24 Resp 18 03/12/21 18:24 BP 104/74 03/12/21 18:24 Pulse Ox 97 03/12/21 18:24 - Orders/Labs/Meds Labs: Laboratory Tests 03/12/21 03/12/21 03/12/21 Range/Units 17:06 17:24 17:24 WBC 10.84 (4.0-11.0) K/uL RBC 5.20 (4.30-5.90) M/uL Hgb 13.1 (12.0-16.0) g/dL Hct 39.9 (36.0-46.0) % MCV 76.7 L (80.0-98.0) fL MCH 25.2 L (27.0-32.0) pg MCHC 32.8 (31.0-37.0) g/dL RDW Std Deviation 39.1 (28.0-62.0) fl RDW Coeff of Amy 14 (11.0-15.0) % Plt Count 234 (150-400) K/uL MPV 11.20 (7.40-12.00) fL Neut % (Auto) 62.2 (48.0-80.0) % Lymph % (Auto) 28.7 (16.0-40.0) % [place] % (Auto) 7.3 (0.0-15.0) % Eos % (Auto) 1.6 (0.0-7.0) % Baso % (Auto) 0.2 (0.0-1.5) % Neut # (Auto) 6.8 H (1.4-5.7) K/uL Lymph # (Auto) 3.1 H (0.6-2.4) K/uL [place] # (Auto) 0.8 (0.0-0.8) K/uL Eos # (Auto) 0.2 (0.0-0.7) K/uL Baso # (Auto) 0.0 (0.0-0.1) K/uL Nucleated RBC % 0.0 /100WBC Nucleated RBCs # 0 K/uL Sodium 139 (136-145) mmol/L Potassium 4.3 (3.5-5.1) mmol/L Chloride 103 (98-107) mmol/L Carbon Dioxide 26.3 (21.0-32.0) mmol/L BUN 15 (7.0-18.0) mg/dL Creatinine 0.8 (0.6-1.0) mg/dL Est Cr Clr Drug Dosing 84.76 mL/min Estimated GFR (MDRD) > 60.0 ml/min Glucose 84 (74-106) mg/dL Calcium 9.3 (8.5-10.1) mg/dL Total Bilirubin 0.1 L (0.2-1.0) mg/dL AST 26 (15-37) IU/L ALT 70 H (14-63) IU/L Alkaline Phosphatase 145 H (46-116) U/L Total Protein 7.0 (6.4-8.2) g/dL Albumin 3.7 (3.4-5.0) g/dL Globulin 3.3 (2.6-4.0) g/dL Albumin/Globulin Ratio 1.1 (0.9-1.6) Lipase 112 (73-393) U/L HCG, Qual (NEG) Urine Color YELLOW Urine Appearance CLEAR Urine pH 6.5 (5.0-8.0) Ur Specific [place] 1.010 (1.001-1.035) Urine Protein NEGATIVE (NEGATIVE) mg/dL Urine Glucose (UA) NEGATIVE (NEGATIVE) mg/dL Urine Ketones NEGATIVE (NEGATIVE) mg/dL Urine Occult Blood NEGATIVE (NEGATIVE) Urine Nitrite NEGATIVE (NEGATIVE) Urine Bilirubin NEGATIVE (NEGATIVE) Urine Urobilinogen 0.2 (<2.0) EU/dL Ur Leukocyte Esterase NEGATIVE (NEGATIVE) 03/12/21 Range/Units 17:24 WBC (4.0-11.0) K/uL RBC (4.30-5.90) M/uL Hgb (12.0-16.0) g/dL Hct (36.0-46.0) % MCV (80.0-98.0) fL MCH (27.0-32.0) pg MCHC (31.0-37.0) g/dL RDW Std Deviation (28.0-62.0) fl RDW Coeff of Amy (11.0-15.0) % Plt Count (150-400) K/uL MPV (7.40-12.00) fL Neut % (Auto) (48.0-80.0) % Lymph % (Auto) (16.0-40.0) % [place] % (Auto) (0.0-15.0) % Eos % (Auto) (0.0-7.0) % Baso % (Auto) (0.0-1.5) % Neut # (Auto) (1.4-5.7) K/uL Lymph # (Auto) (0.6-2.4) K/uL [place] # (Auto) (0.0-0.8) K/uL Eos # (Auto) (0.0-0.7) K/uL Baso # (Auto) (0.0-0.1) K/uL Nucleated RBC % /100WBC Nucleated RBCs # K/uL Sodium (136-145) mmol/L Potassium (3.5-5.1) mmol/L Chloride (98-107) mmol/L Carbon Dioxide (21.0-32.0) mmol/L BUN (7.0-18.0) mg/dL Creatinine (0.6-1.0) mg/dL Est Cr Clr Drug Dosing mL/min Estimated GFR (MDRD) ml/min Glucose (74-106) mg/dL Calcium (8.5-10.1) mg/dL Total Bilirubin (0.2-1.0) mg/dL AST (15-37) IU/L ALT (14-63) IU/L Alkaline Phosphatase (46-116) U/L Total Protein (6.4-8.2) g/dL Albumin (3.4-5.0) g/dL Globulin (2.6-4.0) g/dL Albumin/Globulin Ratio (0.9-1.6) Lipase (73-393) U/L HCG, Qual NEGATIVE (NEG) Urine Color Urine Appearance Urine pH (5.0-8.0) Ur Specific [place] (1.001-1.035) Urine Protein (NEGATIVE) mg/dL Urine Glucose (UA) (NEGATIVE) mg/dL Urine Ketones (NEGATIVE) mg/dL Urine Occult Blood (NEGATIVE) Urine Nitrite (NEGATIVE) Urine Bilirubin (NEGATIVE) Urine Urobilinogen (<2.0) EU/dL Ur Leukocyte Esterase (NEGATIVE) Meds: Medications Discontinued Medications Generic Name Dose Route Start Last Admin Trade Name Freq PRN Reason Stop Dose Admin Sodium Chloride 10 ml 03/12/21 16:58 Sodium Chloride 0.9% 10 Ml Syringe FLUSH ASDIRECTED PRN Keep Vein Open Sodium Chloride 2.5 ml 03/12/21 16:58 Sodium Chloride 0.9% 2.5 Ml Syringe FLUSH ASDIRECTED PRN Keep Vein Open Departure - Departure Time of Disposition: 18:13 Disposition: Home, Self-Care 01 Clinical Impression: Abdominal pain Qualifiers: Abdominal location: epigastric Qualified Code(s): R10.13 - Epigastric pain - Discharge Information Referrals: PCP,None [Primary Care Provider] - Forms: ED Department Discharge Additional Instructions: The following information is given to patients seen in the emergency department who are being discharged to home. This information is to outline your options for follow-up care. We provide all patients seen in our emergency department with a follow-up referral. The need for follow-up, as well as the timing and circumstances, are variable depending upon the specifics of your emergency department visit. If you don't have a primary care physician on staff, we will provide you with a referral. We always advise you to contact your personal physician following an emergency department visit to inform them of the circumstance of the visit and for follow-up with them and/or the need for any referrals to a consulting specialist. The emergency department will also refer you to a specialist when appropriate. This referral assures that you have the opportunity for follow-up care with a specialist. All of these measure are taken in an effort to provide you with opti mal care, which includes your follow-up. Under all circumstances we always encourage you to contact your private physician who remains a resource for coordinating your care. When calling for follow-up care, please make the office aware that this follow-up is from your recent emergency room visit. If for any reason you are refused follow-up, please contact the [facility] Emergency Department at and asked to speak to the emergency department charge nurse. [facility] Primary Care [address] [place] [address] [address] [facility] - General Surgery Professional Building [address] [facility] [place] [address] 1. You can alternate ibuprofen and Tylenol as directed for pain and discomfort. 2. Follow-up with your general surgeon and your primary care provider as discussed. Return to the ED as needed and as discussed. Sepsis Event Note (ED) - Focused Exam Vital Signs: Vital Signs Temp Pulse Resp BP Pulse Ox 03/12/21 18:24 98.2 F 84 18 104/74 97 03/12/21 17:39 98.2 F 85 18 107/85 97 03/12/21 16:48 97.2 F 73 18 119/75 100
== END 2021-03-12 18:25 | disposition home or self-care (01) ==
LOC: MW.ED 16:32
DX: R10.13 Epigastric pain (principal)
CPT/HCPCS: 36415; 80053; 81003; 83690; 84703; 85025; 99284

== ENCOUNTER 2021-03-19 08:40 | Day surgery (SDC) | payer OTHER ==
[~2021-03-19 08:40] MED LIST: Acetaminophen 1,000 MG in Premix Bag 1 BAG IV ONE; Lactated Ringers 1,000 ML IV SCH; Pregabalin 75 MG Cap PO SCH; Propofol 200 MG/20 ML SDV ONE; cefOXitin 2 GM in Premix Bag 1 BAG IV ONE; fentaNYL 250 MCG/5 ML SDV ONE
[2021-03-19] MEDS ORDERED: Bupivacaine 25%/EPINEPHrine/PF 30 ML ONE (09:08)
[2021-03-19] MEDS ORDERED: Bupivacaine 0.5% 30 ML SDV ONE (09:12)
[2021-03-19] MEDS ORDERED: Octyl 2-Cyanoacrylate 1 Tube ONE (09:12)
--- NOTE | 2021-03-19 09:25 | PCM.PREANE ---
Preanesthetic Assessment - Procedure Proposed Procedure: Lap Allyson - Anesthesia/Transfusion/Family Hx Anesthesia History: Prior Anesthesia Without Reaction (Pt has never had a GA, had a under spinal) Family History of Anesthesia Reaction: No Transfusion History: No Prior Transfusion(s) Intubation History: Unknown - Review of Systems General: No Symptoms Pulmonary: No Symptoms Cardiovascular: No Symptoms Gastrointestinal: No Symptoms Neurological: No Symptoms Other: Reports: None (Currently nursing) - Physical Assessment NPO Status Date: 03/18/21 NPO Status Time: 20:00 Vital Signs: Last Vital Signs Temp 97.0 F 03/19/21 08:45 Pulse 79 03/19/21 08:45 Resp 15 03/19/21 08:45 BP 102/69 03/19/21 08:45 Pulse Ox 98 03/19/21 08:45 Height: 5 ft 1 in Weight: 70.307 kg ASA Class: 2 Mental Status: Alert & Oriented x3 Airway Class: Mallampati = 3 Dentition: Reports: Normal Dentition Thyro-Mental Finger Breadths: 3 Mouth Opening Finger Breadths: 3 ROM/Head Extension: Full Lungs: Clear to Auscultation, Normal Respiratory Effort Cardiovascular: Regular Rate, Regular Rhythm - Lab Values: Laboratory Last Values Urine HCG, Qual NEGATIVE (NEGATIVE) 03/19/21 08:50 - Allergies Allergies/Adverse Reactions: Allergies Allergy/AdvReac Type Severity Reaction Status Date / Time No Known Allergies Allergy Verified 03/12/21 16:52 - Acknowledgements Anesthesia Type Planned: General Anesthesia Pt an Appropriate Candidate for the Planned Anesthesia: Yes Alternatives and Risks of Anesthesia Discussed w Pt/Guardian: Yes Pt/Guardian Understands and Agrees with Anesthesia Plan: Yes PreAnesthesia Questionnaire - Past Health History Medical/Surgical History: Denies Medical/Surgical History HEENT History: Reports: None Cardiovascular History: Reports: None Respiratory History: Reports: None Gastrointestinal History: Reports: Other (See Below) Other Gastrointestinal History: symptomatic cholelithiasis Genitourinary History: Reports: None 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/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 History: c/section in September 2020, 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 Musculoskeletal History: Reports: None Neurological History: Reports: None Psychiatric History: Reports: None Endocrine/Metabolic History: Reports: None Hematologic History: Reports: None Immunologic History: Reports: None Oncologic (Cancer) History: Reports: None Dermatologic History: Reports: None - Infectious Disease History Infectious Disease History: Reports: None - Past Surgical History Head Surgeries/Procedures: Reports: None HEENT Surgical History: Reports: None Cardiovascular Surgical History: Reports: None Respiratory Surgical History: Reports: None GI Surgical History: Reports: None Female Surgical History: Reports: Section Endocrine Surgical History: Reports: None Neurological Surgical History: Reports: None Musculoskeletal Surgical History: Reports: None Oncologic Surgical History: Reports: None Dermatological Surgical History: Reports: None - SUBSTANCE USE Tobacco Use Status *Q: Never Tobacco User Recreational Drug Use History: No - HOME MEDS Home Medications: Home Meds Pnv No.95/Ferrous Fum/Folic AC [ Vitamin Tablet] 1 tab PO DAILY 03/14/21 [History] - CURRENT (IN HOUSE) MEDS Current Meds: Current Medications Lactated Ringer's (Ringers, Lactated) 1,000 mls @ 125 mls/hr IV ASDIRECTED [facility] Last Admin: 03/19/21 09:18 Dose: 125 mls/hr Documented by: Pregabalin (Pregabalin 75 Mg Cap) 150 mg PO DAILY [facility] Last Admin: 03/19/21 09:19 Dose: 150 mg Documented by: Discontinued Medications Bupivacaine HCl (Bupivacaine 0.5% 30 Ml Sdv) Confirm Administered Dose 30 ml .ROUTE .STK-MED ONE Stop: 03/19/21 09:13 Fentanyl (Fentanyl 250 Mcg/5 Ml Sdv) Confirm Administered Dose 250 mcg .ROUTE .STK-MED ONE Stop: 03/19/21 07:18 Cefoxitin Sodium 2 gm/ Premix 50 mls @ 100 mls/hr IV ONETIME ONE Stop: 03/17/21 16:24 Acetaminophen 1,000 mg/ Premix 100 mls @ 400 mls/hr IV NOW ONE Stop: 03/17/21 16:09 Acetaminophen 1,000 mg/ Premix 100 mls @ 400 mls/hr IV NOW ONE Stop: 03/19/21 08:14 Last Admin: 03/19/21 09:18 Dose: 400 mls/hr Documented by: Bupivacaine HCl/Epinephrine Bitart (Sensorc Mpf 0.25%-Epi 1:[id number]) Confirm Administered Dose 30 mls @ as directed .ROUTE .STK-MED ONE Stop: 03/19/21 09:09 Octyl Cyanoacrylate (Octyl 2-Cyanoacrylate 1 Tube) Confirm Administered Dose 1 applic .ROUTE .STK-MED ONE Stop: 03/19/21 09:13 Propofol (Propofol 200 Mg/20 Ml Sdv) Confirm Administered Dose 200 mg .ROUTE .STK-MED ONE Stop: 03/19/21 07:18
[2021-03-19] MEDS ORDERED: cefOXitin 100 ML ONE (09:53)
[2021-03-19] MEDS ORDERED: fentaNYL 100 MCG/2 ML SDV ONE ×2 (10:11→10:27)
[2021-03-19] MEDS ORDERED: Ondansetron 4 MG/2 ML SDV ONE ×2 (10:28→11:24)
[2021-03-19] MEDS ORDERED: Ketorolac 30 MG/ML SDV ONE (10:28)
[2021-03-19] MEDS ORDERED: Sugammadex Sodium 200 MG/2 ML VIAL ONE (10:28)
[2021-03-19] MEDS ORDERED: ePHEDrine 50 MG/ML SDV ONE (10:28)
[2021-03-19] MEDS ORDERED: Lidocaine 2% Jelly 30 ML Tube ONE (10:28)
[2021-03-19] MEDS ORDERED: Rocuronium Bromide 50 MG/5 ML Syringe ONE (10:28)
[2021-03-19] MEDS ORDERED: Dexamethasone 4 MG/ML 5 ML MDV ONE (10:28)
--- NOTE | 2021-03-19 11:14 | PCM.OPNOTE ---
- General Post-Op/Procedure Note Date of Surgery/Procedure: 03/19/21 Operative Procedure(s): laparoscopic cholecystectomy Findings: dictation number [id number] Pre Op Diagnosis: Symptomatic cholelithiasis Post-Op Diagnosis: Symptomatic cholelithiasis Primary Surgeon: Jhonny Gudino Pathology: gallbladder EBL in mLs: 5 Complications: None Condition: Good
--- NOTE | 2021-03-19 11:17 | PCM.POSTAN ---
POST ANESTHESIA ASSESSMENT - MENTAL STATUS Mental Status: Alert, Oriented - VITAL SIGNS Vital Signs: Last Vital Signs Temp 97.7 F 03/19/21 11:09 Pulse 92 03/19/21 11:09 Resp 16 03/19/21 11:09 BP 112/71 03/19/21 11:09 Pulse Ox 100 03/19/21 11:09 - RESPIRATORY Respiratory Status: Respiratory Rate WNL, Airway Patent, O2 Saturation Stable - CARDIOVASCULAR CV Status: Pulse Rate WNL, Blood Pressure Stable - GASTROINTESTINAL GI Status: No Symptoms - PAIN Pain Score: 0 - POST OP HYDRATION Hydration Status: Adequate & Stable
[2021-03-19] MEDS ORDERED: Ondansetron 4 MG/2 ML SDV IVPUSH ONE (11:28)
[2021-03-19] MEDS ORDERED: Morphine 2 MG/ML SYRINGE IVPUSH PRN (11:42)
[2021-03-19] MEDS ORDERED: Ondansetron 4 MG/2 ML SDV IVPUSH PRN (11:42)
[2021-03-19] MEDS ORDERED: Metoclopramide 10 MG/2 ML SDV IVPUSH PRN (11:42)
[2021-03-19] MEDS ORDERED: Naloxone 0.4 MG/ML Syringe IVPUSH PRN (11:42)
[2021-03-19] MEDS ORDERED: HYDROmorphone 1 MG/ML Syringe IVPUSH PRN (11:42)
[2021-03-19] MEDS ORDERED: fentaNYL 100 MCG/2 ML SDV IVPUSH PRN (11:42)
[2021-03-19] MEDS ORDERED: Albuterol 0.083% 2.5 MG/3 ML Neb Soln NEB PRN (11:42)
--- NOTE | 2021-03-19 12:23 | PCM48HPAN ---
Post Anesthesia Note - EVALUATION WITHIN 48HRS OF ANESTHETIC Vital Signs in Normal Range: Yes Patient Participated in Evaluation: Yes Respiratory Function Stable: Yes Airway Patent: Yes Cardiovascular Function Stable: Yes Hydration Status Stable: Yes Pain Control Satisfactory: Yes Nausea and Vomiting Control Satisfactory: Yes Mental Status Recovered: Yes Vital Signs: Last Vital Signs Temp 96.3 F L 03/19/21 11:58 Pulse 81 03/19/21 12:13 Resp 14 03/19/21 12:13 BP 98/75 03/19/21 12:13 Pulse Ox 100 03/19/21 12:13 - COMMENTS/OBSERVATIONS Free Text/Narrative:: Pt doing well post-op. VSS. No apparent anesthetic complications. Dr. Lion Montano
--- NOTE | 2021-03-21 01:43 | OR ---
SURGEON: MEEK BOOKER MD DATE OF PROCEDURE: 03/19/2021 PREOPERATIVE DIAGNOSIS: Symptomatic cholelithiasis. POSTOPERATIVE DIAGNOSIS: Symptomatic cholelithiasis. PROCEDURE PERFORMED: Laparoscopic cholecystectomy. PRIMARY SURGEON: Meek Booker MD ANESTHESIA: General. ESTIMATED BLOOD LOSS: 5 mL. SPECIMEN: Gallbladder. COMPLICATIONS: None. REASON FOR PROCEDURE: The patient is a pleasant 36-year-old female, who during her last had issues with gallbladder with right upper quadrant pain especially after eating foods. She had an ultrasound that showed multiple gallstones, but no gallbladder thickening or pericholecystic fluid. She had a slight elevation of alkaline phosphatase. The total bilirubin was 0.1. The patient says since seen in the clinic, she has had one more attack of right upper quadrant pain. Also, we went over with the patient, risks, goals, and alternatives of surgeries. Risks include, but not limited to bleeding, infection, bile leak, retained gallstones, change in bowel habits such as loose stools, injury to bile duct, need to convert to open, hernia formation. The patient understands and wished to proceed. OPERATIVE NARRATIVE: The patient was brought back to the OR. She was prepped and draped in usual sterile fashion. SCDs were placed. Preoperative antibiotics given. Anesthesia was provided by the anesthesia team. After a time-out was performed, an infraumbilical incision was made down to the fascia. Fascia was entered using open Nahun technique and then a Nahun trocar was placed. Insufflation was begun. The abdomen was inspected. No entry injury was noted. Now, three more 5 mm trocars were placed under direct visualization, one in the midepigastric, one in the right upper quadrant, one in the lower right quadrant. The patient was then placed in a head up position and airplaned towards myself. Now, the fundus of the gallbladder was grasped and elevated. The was carefully dissected out. It was slightly scarred in this area. careful blunt dissection, was able to get out the cystic duct and cystic artery, dissected up the gallbladder wall in slight distance. The patient did have some indocyanine green, which again showed a good critical view. Now, the cystic duct and cyst artery were clipped and transected. The rest of the gallbladder was removed with a Harmonic scalpel. No other tubular structures were entered. I did get a small hole in the gallbladder, but only had some minimal spillage of bile. This was suctioned and irrigated out. A gallbladder was placed in EndoCatch bag. The area was again inspected. The clips appeared to be in good position and intact. The fossa had good hemostasis. Again, did suction and irrigation because of the small amount of bile until clear. All the 5 mm trocars were removed and pneumoperitoneum was released. The Nahun trocar was removed along with the gallbladder in EndoCatch bag. The fascia was closed with [id number] 0 Vicryl. Rest of the local was injected into the trocar sites and they were all closed with 4-0 Monocryl and Dermabond. At the end of the case, sponge and needle counts were correct, and the patient was transferred to recovery room in stable condition. LANDY CASTANON /[id number]
== END 2021-03-19 14:20 | disposition home or self-care (01) ==
LOC: MW.SDS 08:40
PROVIDERS: ATTEND Surgery
DX: K80.10 Calculus of gallbladder with chronic cholecystitis without obstruction (principal)
CPT/HCPCS: 47562; 81025; 88304; A9270; J0131; J0694; J1100; J1885; J2405; J2704; J2765; J3010; J3490; J7030; J7120; 00790

== ENCOUNTER 2021-03-23 14:15 | Emergency (ER) | payer OTHER ==
[2021-03-23] MEDS ORDERED: Ondansetron 4 MG/2 ML SDV IVPUSH ONE (15:35)
[2021-03-23] MEDS ORDERED: Lactated Ringers 1,000 ML IV ONE (15:35)
[2021-03-23] MEDS ORDERED: Morphine 2 MG/ML SYRINGE IVPUSH STA (15:36)
--- NOTE | 2021-03-23 15:41 | EDM.PDOC ---
<Jean-Pierre Gomez - Last Filed: 03/23/21 19:09> ED HPI GENERAL MEDICAL PROBLEM - General Chief Complaint: Abdominal Pain Stated Complaint: PAINFUL STOMACH AREA Time Seen by Provider: 03/23/21 15:27 - Related Data Allergies Allergy/AdvReac Type Severity Reaction Status Date / Time No Known Allergies Allergy Verified 03/12/21 16:52 Home Meds: Home Meds Pnv No.95/Ferrous Fum/Folic AC [ Vitamin Tablet] 1 tab PO DAILY 03/14/21 [History] Departure - Departure Time of Disposition: 19:10 Disposition: Home, Self-Care 01 Clinical Impression: UTI (urinary tract infection) Abdominal pain Qualifiers: Abdominal location: epigastric Qualified Code(s): R10.13 - Epigastric pain - Discharge Information Instructions: Urinary Tract Infection, Adult Referrals: Danya Clark MD [Primary Care Provider] - Forms: ED Department Discharge Additional Instructions: Return for fever, increased pain, change or worsening condition. Follow-up with surgeon as discussed The following information is given to patients seen in the emergency department who are being discharged to home. This information is to outline your options for follow-up care. We provide all patients seen in our emergency department with a follow-up referral. The need for follow-up, as well as the timing and circumstances, are variable depending upon the specifics of your emergency department visit. If you don't have a primary care physician on staff, we will provide you with a referral. We always advise you to contact your personal physician following an emergency department visit to inform them of the circumstance of the visit and for follow-up with them and/or the need for any referrals to a consulting specialist. The emergency department will also refer you to a specialist when appropriate. This referral assures that you have the opportunity for follow-up care with a specialist. All of these measure are taken in an effort to provide you with optimal care, which includes your follow-up. Primary care clinics in the area: [facility] [address] [place] [address] [facility] [address] [place] [address] Under all circumstances we always encourage you to contact your private physician who remains a resource for coordinating your care. When calling for follow-up care, please make the office aware that this follow-up is from your recent emergency room visit. If for any reason you are refused follow-up, please contact the [facility] Emergency Department at and asked to speak to the emergency department charge nurse. <Jorge Torres - Last Filed: 03/24/21 08:26> ED HPI GENERAL MEDICAL PROBLEM - History of Present Illness INITIAL COMMENTS - FREE TEXT/NARRATIVE: 36-year-old female presents complaining of abdominal pain. Patient on Wednesday had a cholecystectomy and she started having pain when she left the hospital. She was taking pain medication and it would take care of it but now when she takes it the pain still persists. Patient states she took a narcotic pain medication with Tylenol before only 1 tablet and was too strong for her and she is just been trying Tylenol now. Patient denies any fevers. No vomiting. 1 episode of mild loose stool. No pain with urination. 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, 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 Musculoskeletal History: Reports: None Neurological History: Reports: None Psychiatric History: Reports: None Endocrine/Metabolic History: Reports: None Hematologic History: Reports: None Immunologic History: Reports: None Oncologic (Cancer) History: Reports: None Dermatologic History: Reports: None - Infectious Disease History Infectious Disease History: Reports: None - Past Surgical History Head Surgeries/Procedures: Reports: None HEENT Surgical History: Reports: None Cardiovascular Surgical History: Reports: None Respiratory Surgical History: Reports: None GI Surgical History: Reports: Cholecystectomy Female Surgical History: Reports: Section Endocrine Surgical History: Reports: None Neurological Surgical History: Reports: None Musculoskeletal Surgical History: Reports: None Oncologic Surgical History: Reports: None Social & Family History - Family History Family Medical History: No Pertinent Family History - Tobacco Use Tobacco Use Status *Q: Never Tobacco User - Caffeine Use Caffeine Use: Reports: Coffee - Recreational Drug Use Recreational Drug Use: No ED ROS GENERAL - Review of Systems Review Of Systems: See Below Constitutional: Denies: Fever Respiratory: Denies: Shortness of Breath Cardiovascular: Denies: Chest Pain GI/Abdominal: Reports: Abdominal Pain. Denies: Diarrhea, Vomiting : Denies: Dysuria Skin: Denies: Rash Neurological: Reports: No Symptoms Free Text/Narrative/Comment: No cough or Covid contacts. No history of blood clot. No unilateral leg swelling. No recent travel, injury, cancer, surgery. No smoking or control ED EXAM, GENERAL - Physical Exam Exam: See Below Free Text/Narrative:: CONSTITUTIONAL: well appearing in no acute distress SKIN: Warm, dry, and intact without rash HENT: Normocephalic, atraumatic, PULMONARY: clear to ausculation bilaterally. No rales, rhonchi, wheezing CARDIOVASCULAR: regular rate, No murmur, rubs, or gallops GASTROINTESTINAL: Surgical incisions are clean and dry and intact. Patient has some mild right upper quadrant tenderness. No rebound or rigidity. No tenderness to the left upper and lower quadrants NEUROLOGIC: normal speech, II-XII intact. light touch/5/5 power equal and symmetric in upper and lower extremities without deficit MUSCULOSKELETAL: no gross deformities, atraumatic PSYCHIATRIC: normal mood and affect Course - Vital Signs Text/Narrative:: Differential diagnosis: Biliary leak, UTI, internal bleeding, PE, pneumonia, other Patient presents as outlined above. Patient's exam is quite benign. Laboratory work-up is unremarkable. Urine was delayed and resulting but does have suggestion of UTI. Patient was reasked and states that maybe the abdominal discomfort is worse when she urinates but she points to the right upper side. Patient has never had any flank tenderness. This could be consistent with UTI which fits the postop time course. Dr. Mon evaluate and DC with abx and 1/2 tab norco Last Recorded V/S: Last Vital Signs Temp 36.0 C L 03/23/21 19:29 Pulse 66 03/23/21 19:29 Resp 18 03/23/21 19:29 BP 114/64 03/23/21 19:29 Pulse Ox 97 03/23/21 19:29 - Orders/Labs/Meds Orders: Active Orders 24 hr Category Date Time Status CULTURE URINE [MREF] Stat Lab 03/23/21 17:40 Received Labs: Laboratory Tests 03/23/21 03/23/21 03/23/21 Range/Units 15:40 15:40 16:31 WBC 10.73 (4.0-11.0) K/uL RBC 5.22 (4.30-5.90) M/uL Hgb 13.2 (12.0-16.0) g/dL Hct 39.7 (36.0-46.0) % MCV 76.1 L (80.0-98.0) fL MCH 25.3 L (27.0-32.0) pg MCHC 33.2 (31.0-37.0) g/dL RDW Std Deviation 37.8 (28.0-62.0) fl RDW Coeff of Amy 14 (11.0-15.0) % Plt Count 277 (150-400) K/uL MPV 10.70 (7.40-12.00) fL Neut % (Auto) 67.6 (48.0-80.0) % Lymph % (Auto) 21.6 (16.0-40.0) % Ector % (Auto) 5.7 (0.0-15.0) % Eos % (Auto) 4.8 (0.0-7.0) % Baso % (Auto) 0.3 (0.0-1.5) % Neut # (Auto) 7.3 H (1.4-5.7) K/uL Lymph # (Auto) 2.3 (0.6-2.4) K/uL Ector # (Auto) 0.6 (0.0-0.8) K/uL Eos # (Auto) 0.5 (0.0-0.7) K/uL Baso # (Auto) 0.0 (0.0-0.1) K/uL Nucleated RBC % 0.0 /100WBC Nucleated RBCs # 0 K/uL Sodium 141 (136-145) mmol/L Potassium 3.6 (3.5-5.1) mmol/L Chloride 106 (98-107) mmol/L Carbon Dioxide 26.6 (21.0-32.0) mmol/L BUN 12 (7.0-18.0) mg/dL Creatinine 0.8 (0.6-1.0) mg/dL Est Cr Clr Drug Dosing 74.06 mL/min Estimated GFR (MDRD) > 60.0 ml/min Glucose 89 (74-106) mg/dL Lactic Acid 0.8 (0.4-2.0) mmol/L Calcium 8.7 (8.5-10.1) mg/dL Total Bilirubin 0.2 (0.2-1.0) mg/dL AST 26 (15-37) IU/L ALT 92 H (14-63) IU/L Alkaline Phosphatase 143 H (46-116) U/L Total Protein 7.0 (6.4-8.2) g/dL Albumin 3.7 (3.4-5.0) g/dL Globulin 3.3 (2.6-4.0) g/dL Albumin/Globulin Ratio 1.1 (0.9-1.6) Lipase 88 (73-393) U/L Urine Color Urine Appearance Urine pH (5.0-8.0) Ur Specific [place] (1.001-1.035) Urine Protein (NEGATIVE) mg/dL Urine Glucose (UA) (NEGATIVE) mg/dL Urine Ketones (NEGATIVE) mg/dL Urine Occult Blood (NEGATIVE) Urine Nitrite (NEGATIVE) Urine Bilirubin (NEGATIVE) Urine Urobilinogen (<2.0) EU/dL Ur Leukocyte Esterase (NEGATIVE) Urine RBC (0-2/HPF) Urine WBC (0-5/HPF) Ur Epithelial Cells (NONE-FEW) Urine Bacteria (NEGATIVE) Urine Mucus (NONE-MOD) Urine HCG, Qual (NEGATIVE) 03/23/21 03/23/21 Range/Units 17:40 17:40 WBC (4.0-11.0) K/uL RBC (4.30-5.90) M/uL Hgb (12.0-16.0) g/dL Hct (36.0-46.0) % MCV (80.0-98.0) fL MCH (27.0-32.0) pg MCHC (31.0-37.0) g/dL RDW Std Deviation (28.0-62.0) fl RDW Coeff of Amy (11.0-15.0) % Plt Count (150-400) K/uL MPV (7.40-12.00) fL Neut % (Auto) (48.0-80.0) % Lymph % (Auto) (16.0-40.0) % Ector % (Auto) (0.0-15.0) % Eos % (Auto) (0.0-7.0) % Baso % (Auto) (0.0-1.5) % Neut # (Auto) (1.4-5.7) K/uL Lymph # (Auto) (0.6-2.4) K/uL Ector # (Auto) (0.0-0.8) K/uL Eos # (Auto) (0.0-0.7) K/uL Baso # (Auto) (0.0-0.1) K/uL Nucleated RBC % /100WBC Nucleated RBCs # K/uL Sodium (136-145) mmol/L Potassium (3.5-5.1) mmol/L Chloride (98-107) mmol/L Carbon Dioxide (21.0-32.0) mmol/L BUN (7.0-18.0) mg/dL Creatinine (0.6-1.0) mg/dL Est Cr Clr Drug Dosing mL/min Estimated GFR (MDRD) ml/min Glucose (74-106) mg/dL Lactic Acid (0.4-2.0) mmol/L Calcium (8.5-10.1) mg/dL Total Bilirubin (0.2-1.0) mg/dL AST (15-37) IU/L ALT (14-63) IU/L Alkaline Phosphatase (46-116) U/L Total Protein (6.4-8.2) g/dL Albumin (3.4-5.0) g/dL Globulin (2.6-4.0) g/dL Albumin/Globulin Ratio (0.9-1.6) Lipase (73-393) U/L Urine Color RED Urine Appearance CLOUDY Urine pH 7.0 (5.0-8.0) Ur Specific [place] 1.015 (1.001-1.035) Urine Protein 100 H (NEGATIVE) mg/dL Urine Glucose (UA) NEGATIVE (NEGATIVE) mg/dL Urine Ketones TRACE H (NEGATIVE) mg/dL Urine Occult Blood LARGE H (NEGATIVE) Urine Nitrite POSITIVE H (NEGATIVE) Urine Bilirubin NEGATIVE (NEGATIVE) Urine Urobilinogen 1.0 (<2.0) EU/dL Ur Leukocyte Esterase SMALL H (NEGATIVE) Urine RBC TOO NUMEROUS TO CT H (0-2/HPF) Urine WBC 1-3 (0-5/HPF) Ur Epithelial Cells RARE (NONE-FEW) Urine Bacteria 1+ H (NEGATIVE) Urine Mucus LIGHT (NONE-MOD) Urine HCG, Qual NEGATIVE (NEGATIVE) Meds: Medications Discontinued Medications Generic Name Dose Route Start Last Admin Trade Name Danieq PRN Reason Stop Dose Admin Lactated Ringer's 1,000 mls @ 999 mls/hr 03/23/21 15:35 03/23/21 16:18 Ringers, Lactated IV 03/23/21 16:35 999 mls/hr .BOLUS ONE Administration Morphine Sulfate 2 mg 03/23/21 15:36 03/23/21 16:17 Morphine 2 Mg/Ml Syringe IVPUSH 03/23/21 15:37 2 mg NOW STA Administration Ondansetron HCl 4 mg 03/23/21 15:35 03/23/21 16:17 Ondansetron 4 Mg/2 Ml Sdv IVPUSH 03/23/21 15:36 4 mg ONETIME ONE Administration Departure - Departure Time of Disposition: 19:00 Condition: Good Sepsis Event Note (ED) - Evaluation Sepsis Screening Result: No Definite Risk
[2021-03-23 16:48] LABS: BLOOD UREA NITROGEN,BUN 12 mg/dL (7.0-18.0); CARBON DIOXIDE,CO2 26.6 mmol/L (21.0-32.0); CHLORIDE,CL 106 mmol/L (98-107); GLUCOSE RANDOM 89 mg/dL (74-106); LIPASE 88 U/L (73-393); POTASSIUM,K 3.6 mmol/L (3.5-5.1); SODIUM,NA 141 mmol/L (136-145)
== END 2021-03-23 19:29 | disposition home or self-care (01) ==
LOC: MW.ED 14:15
DX: N39.0 Urinary tract infection, site not specified (principal)
CPT/HCPCS: 80053; 81001; 81025; 83605; 83690; 85025; 87086; 96374; 96375; 99284; J2270; J2405; J7120

== ENCOUNTER 2025-02-19 10:43 | Emergency (ER) | payer OTHER, SELFPAY ==
[2025-02-19 11:40] LABS: BASOPHILS ABSOLUTE AUTO 0.03 K/uL (0.00-0.20); BASOPHILS PERCENT AUTO 0.4 % (0.0-1.0); EOSINOPHILS ABSOLUTE AUTO 0.08 K/uL (0.00-0.45); EOSINOPHILS PERCENT AUTO 1.1 % (0.0-6.0); IMMATURE GRAN ABSOLUTE AUTO 0.02 K/uL (0.00-0.05); IMMATURE GRAN PERCENT AUTO 0.3 % (0.0-0.4); LYMPHOCYTES ABSOLUTE AUTO 2.45 K/uL (1.00-4.80); LYMPHOCYTES PERCENT AUTO 32.8 % (24.0-44.0); MONOCYTES ABSOLUTE AUTO 0.50 K/uL (0.00-0.80); MONOCYTES PERCENT AUTO 6.7 % (0.0-8.0); NEUTROPHILS ABSOLUTE AUTO 4.39 K/uL (1.80-7.70); NEUTROPHILS PERCENT AUTO 58.7 % (41.0-71.0); NRBC ABSOLUTE 0.00 K/uL (0.00-0.02); NRBC PERCENT 0.0 /100WBC (0.0-0.2); PLATELET COUNT,PLT 293 K/uL (150-400); RED BLOOD CELL COUNT 4.97 M/uL (4.10-5.30); WHITE BLOOD CELL COUNT,WBC 7.47 K/uL (3.9-11.3)
[2025-02-19] MEDS: Ketorolac 30 MG/ML SDV IVPUSH ONE (12:00)
[2025-02-19 12:16] LABS: A/G RATIO 1.0 (0.9-1.6); ALANINE AMINOTRANSFERASE,ALT 26 IU/L (14-63); ASPARTATE AMNIOTRANSFERASE,AST 15 IU/L (15-37); BILIRUBIN TOTAL 0.3 mg/dL (0.2-1.0); BLOOD UREA NITROGEN,BUN 12 mg/dL (7.0-18.0); CARBON DIOXIDE,CO2 26.4 mmol/L (21.0-32.0); CHLORIDE,CL 104 mmol/L (98-107); CREATININE 0.9 mg/dL (0.6-1.0); EST CRCL DRUG DOSING (CG) 63.95 mL/min; GLUCOSE RANDOM 104 mg/dL (74-106); POTASSIUM,K 3.7 mmol/L (3.5-5.1); PRO B-TYPE NATRIUR PEPT,BNPPRO 25 pg/mL (0-125); PROTEIN TOTAL,TP 6.8 g/dL (6.4-8.2); SODIUM,NA 137 mmol/L (136-145); TSH ULTRASENSITIVE 1.37 uIU/mL (0.36-3.74)
[2025-02-19 12:20] LABS: ESTIMATED GFR 84 mL/min (>60)
[2025-02-19] MEDS: Iopamidol 755 MG/ML 500 ML Multipack Bottle IVPUSH STA (12:28)
== END 2025-02-19 13:18 | disposition home or self-care (01) ==
LOC: MW.ED 10:43
DX: D64.9 Anemia, unspecified (principal); R07.9 Chest pain, unspecified; Z79.899 Other long term (current) drug therapy
CPT/HCPCS: 36415; 71045; 71275; 80053; 83880; 84443; 84484; 84703; 85025; 85379; 93005; 96361; 96374; 99285; J1885; J7030; Q9967; 93010; 99284